=== PATIENT | female | born 1960 | race Caucasian/White ===

== ENCOUNTER 2021-04-09 10:37 | Emergency (ER) | payer MEDICARE, SELFPAY ==
[2021-04-09 10:52] VITALS: BP 149/78; PULSE 74; RESP 16; TEMP 37; O2SAT 98
--- NOTE | 2021-04-09 11:14 | ED.SKABFB ---
HPI - Skin/Abscess/Foreign Bdy General Chief complaint: Skin/Abscess/Foreign Body Stated complaint: Rash Time Seen by Provider: 04/09/21 11:14 Source: patient, RN notes reviewed and old records reviewed Mode of arrival: ambulatory Limitations: no limitations History of Present Illness HPI narrative: 61-year-old female who presents to [facility] with complaints of rash to upper arms, legs, and abdomen since last p.m. does admit to changing body wash Thursday. Patient reports itching extremely bad behind her knees and on elbows with also itching to other areas. Patient denies any increased difficulty with her breathing or swallowing. She denies any new medications, foods, laundry products or lotions or any new pets or outside work. Patient denies anyone else in household having rash, no sore throat or any fevers noted. Patient has had COVID vaccinations. complaint: rash Onset (ago): day(s) (1) Related Data Home Medications Medication Instructions Recorded Confirmed aspirin [Adult Low Dose Aspirin] 81 mg PO DAILY 04/09/21 04/09/21 levothyroxine 100 mcg PO DAILY 04/09/21 04/09/21 Allergies Allergy/AdvReac Type Severity Reaction Status Date / Time No Known Allergies Allergy Verified 04/09/21 10:58 Review of Systems Review of Systems: CONSTITUTIONAL: Denies fever, chills, or sweats. EYES: Denies visual changes, redness, or discharge. ENT: Denies rhinorrhea, congestion, sore throat, or otalgia. CARDIOVASCULAR: Denies chest pain, palpitations, or edema. RESPIRATORY: Denies cough or dyspnea. GASTROINTESTINAL: Denies abdominal pain, nausea, vomiting, or diarrhea. GENITOURINARY: Denies dysuria or hematuria. SKIN: Positive rash with itching upper arms and legs and abdomen MUSCULOSKELETAL: Denies back pain, joint pain, or myalgia. NEUROLOGIC: Denies headache, numbness, or weakness. PSYCHIATRIC: Denies anxiety or depression. All systems reviewed & are unremarkable except as noted in HPI and below PMFSH Past Medical History Medical History (Updated 04/14/21 @ 09:57 by Lolly Quintana NP) Colon cancer COPD (chronic obstructive pulmonary disease) History of thyroid irradiation Thyroid disease Surgical History Surgical History (Updated 04/09/21 @ 11:18 by Lolly Quintana NP) History of colon resection History of colostomy reversal Family History Family History (Updated 04/09/21 @ 11:22 by Lolly Quintana NP) Grandparent Diabetes mellitus Hypertension Mother Acute myocardial infarction Social History Social History (Updated 04/14/21 @ 09:58 by Lolly Quintana NP) Smoking packs per day: 0.5 Smoking cigarettes per day: 10.0 Years smoked: 50 Smoking pack-years: 25.00 Smoking status: Current every day smoker Tobacco type: cigarettes Alcohol intake: current Alcohol use details: social Substance use: never Living arrangements: with family Gender identity (if verbalized by the patient): Female Comments At time of signature, agree with nursing past medical, surgical, social and family history. There is no relevant family history pertinent to the presenting complaint Exam Narrative: GENERAL: Well-appearing, well-nourished, and in no acute distress. HEAD: Normocephalic, atraumatic. EYES: PERRLA and EOMI. ENT: Nares clear, no rhinorrhea or epistaxis. Mucous membranes moist.TM's normal, throat pink with no lesions or exudates, no tonsil enlargement NECK: Supple.no lymphadenopathy CHEST: Clear to auscultation. No respiratory distress.SAO2 98% on room air HEART: Regular rate and rhythm. No murmur heard. Normal peripheral pulses. ABDOMEN: Soft, nontender, nondistended, normal active bowel sounds. EXTREMITIES: Normal range of motion. No edema. SKIN: Warm, dry, red raised patchy rash to abdomen arms and legs which is itchy no exudate or vesicle formation. NEURO: No focal deficits. Alert and oriented x3. Course Vital Signs Vital signs: Vital Signs Temperature 37.0 C 04/09/21
== END 2021-04-09 11:32 | disposition home or self-care (01) ==
PROVIDERS: Emergency Provider Registered Nurse
DX: L25.9 Unspecified contact dermatitis, unspecified cause (principal); F17.210 Nicotine dependence, cigarettes, uncomplicated; E07.9 Disorder of thyroid, unspecified
CPT/HCPCS: 99213; G0463

== ENCOUNTER 2024-03-15 08:15 | Emergency (ER) | payer MEDICARE, SELFPAY ==
--- NOTE | ~2024-03-15 | XR_ITS ---
EXAMINATION: XR chest 2V DATE: 03/15/2024 08:39 INDICATION: Chest pain. Shortness of breath. TECHNIQUE: Frontal and lateral views of the chest were obtained. COMPARISON: None. FINDINGS: There is a mass in the posterior costophrenic angle on the lateral view. No pleural effusio n or pneumothorax. The heart size is normal. There is a right internal jugular port with tip in super ior vena cava. IMPRESSION: 1. Mass in the posterior costophrenic angle on the lateral view, which may be atelectasis, pneumonia, or malignancy. Consider chest CT. Reviewed, dictated and finalized at location A. IMPRESSION: 1. Mass in the posterior costophrenic angle on the lateral view, which may be a telectasis, pneumonia, or malignancy. Consider chest CT.
[2024-03-15 08:21] VITALS: BP 123/80; PULSE 107; RESP 20; TEMP 36.4; O2SAT 89
--- NOTE | 2024-03-15 08:28 | ED.GENADULT ---
HPI - General Adult General Chief complaint: Back Pain/Injury Stated complaint: Back Pain Time Seen by Provider: 03/15/24 08:34 Source: patient, RN notes reviewed and old records reviewed Mode of arrival: ambulatory Limitations: no limitations History of Present Illness HPI narrative: 64 year old female who [facility] with complaints of 1.5 weeks of right sided lateral chest wall pain from right lateral thoracic angle across lateral chest with no known injury. Patient reports history of COPD and is on home oxygen at 2 L, not wearing any oxygen on arrival with SAO2 89%, had cannula in place but had not turned on oxygen did turn it on after initial triage. Patient denies any fevers, increase cough or feelings of congestion. Patient reports that she is scheduled for CT scan of chest tomorrow at [facility] at 0745 and then has appointment with pulmonary doctor at 0830. MD complaint: pain to the right lateral chest Onset (ago): week(s) (1.5) Location: chest (right chest wall) Radiation: other (from right lateral thoracic across lateral chest lower rib line) Severity scale (1-10): 4 Quality: aching Treatments prior to arrival: other (Tylenol) Related Data Home Medications Medication Instructions Recorded Confirmed aspirin 81 mg tablet 81 mg PO DAILY 04/09/21 04/09/21 levothyroxine 100 mcg capsule 100 mcg PO DAILY 04/09/21 04/09/21 atorvastatin 10 mg tablet mg 03/15/24 Allergies Allergy/AdvReac Type Severity Reaction Status Date / Time No Known Allergies Allergy Verified 04/09/21 10:58 Review of Systems Review of Systems: CONSTITUTIONAL: Denies fever, chills, or sweats. EYES: Denies visual changes, redness, or discharge. ENT: Denies rhinorrhea, congestion, sore throat, or otalgia. CARDIOVASCULAR: Denies chest pain, palpitations, or edema. RESPIRATORY: Reports cough denies any acute dyspnea, does have history of COPD does use home oxygen per nasal cannula at 2 L. GASTROINTESTINAL: Denies abdominal pain, nausea, vomiting, or diarrhea. GENITOURINARY: Denies dysuria or hematuria. SKIN: Denies rash or itching. MUSCULOSKELETAL: Denies back pain, joint pain, or myalgia.positive for pain lateral chest from lateral thoracic angle to lateral chest along lower rib area. NEUROLOGIC: Denies headache, numbness, or weakness. PSYCHIATRIC: Denies anxiety or depression. All systems reviewed & are unremarkable except as noted in HPI and below PMFSH Past Medical History Medical History Colon cancer COPD (chronic obstructive pulmonary disease) History of thyroid irradiation Thyroid disease Surgical History Surgical History History of colon resection History of colostomy reversal Family History Family History Grandparent Diabetes mellitus Hypertension Mother Acute myocardial infarction Social History Social History Smoking packs per day: 0.5 Smoking cigarettes per day: 10.0 Years smoked: 50 Smoking pack-years: 25.00 Smoking status: Current every day smoker Tobacco type: cigarettes Alcohol intake: current Alcohol use details: social Substance use: never Living arrangements: with family Gender identity (if verbalized by the patient): Female Comments At time of signature, agree with nursing past medical, surgical, social and family history. There is no relevant family history pertinent to the presenting complaint Exam Narrative: GENERAL:chronic ill-appearing, well-nourished, and in no acute distress. HEAD: Normocephalic, atraumatic. EYES: PERRLA and EOMI. ENT: Nares clear, no rhinorrhea or epistaxis. Mucous membranes moist.TM's normal with good light reflex, throat pink with no swelling noted NECK: Supple.no lymphadenopathy CHEST: Decreased breath sounds on ausc
[2024-03-15 08:29] VITALS: BP 123/80; PULSE 107; RESP 20; TEMP 36.4; O2SAT 89
== END 2024-03-15 09:16 | disposition home or self-care (01) ==
PROVIDERS: Emergency Provider Registered Nurse; PCP Family Medicine
DX: R07.89 Other chest pain (principal); F17.210 Nicotine dependence, cigarettes, uncomplicated; J44.9 Chronic obstructive pulmonary disease, unspecified; E07.9 Disorder of thyroid, unspecified; Z85.038 Personal history of other malignant neoplasm of large intestine
CPT/HCPCS: 71046; 99213; G0463

== ENCOUNTER 2024-08-31 10:40 | Emergency (ER) | payer MEDICARE, SELFPAY ==
--- NOTE | ~2024-08-31 | XR_ITS ---
CHEST RADIOGRAPH, PA AND LATERAL CLINICAL HISTORY: cough sob leg swelling,HX PORT,COPD,ASTHMA,SMOKER . COMPARISON: 03/15/2024 TECHNIQUE: PA and lateral views of the chest. FINDINGS Right internal jugular central venous catheter identified with its tip projecting over the cavoatrial junction. The remainder of the cardiomediastinal silhouette is otherwise unremarkable. The lungs are clear. IMPRESSION: No focal infiltrate or effusion. Reviewed, dictated and finalized at location A.
[2024-08-31 10:48] VITALS: BP 158/60; PULSE 94; RESP 24; TEMP 36.4; O2SAT 76
[2024-08-31 10:54] VITALS: RESP 24; O2SAT 85
--- NOTE | 2024-08-31 10:58 | ED_ITS ---
HPI - URI/Sore Throat General Chief Complaint: Upper Respiratory Infection Stated Complaint: cough/shortness of breath/swollen ankles Time Seen by Provider: 08/31/24 10:59 Source: patient Mode of arrival: ambulatory Limitations: no limitations History of Present Illness HPI Narrative: 64-year-old female with a history of COPD presented for complaint of increasing shortness of breath, productive cough, and ankle swelling. Symptoms worsening over the past 2-3 weeks. She says she has a change in her sputum production amount and color. Endorses sob with exertion. Pt wears 3L per NC, says she has been wearing it more often. Denies cp, palpitations, n/v/d/f/c. Related Data Home Medications ?Medication ?Instructions ?Recorded ?Confirmed ?Last Taken ?Type aspirin 81 mg tablet 81 mg PO DAILY 04/09/21 04/09/21 Unknown History levothyroxine 100 mcg capsule 100 mcg PO DAILY 04/09/21 04/09/21 Unknown History atorvastatin 10 mg tablet mg 03/15/24 Unknown History Allergies Allergy/AdvReac Type Severity Reaction Status Date / Time No Known Allergies Allergy Verified 08/31/24 10:57 Review of Systems Review of Systems: CONSTITUTIONAL: Denies body aches, fever, chills, or sweats. EYES: Denies visual changes, redness, or discharge. ENT: Denies rhinorrhea, congestion, sore throat, or otalgia. CARDIOVASCULAR: Denies chest pain, palpitations, or edema. RESPIRATORY: Reports cough, sob, wheezing. GASTROINTESTINAL: Denies abdominal pain, nausea, vomiting, or diarrhea. MUSCULOSKELETAL: Denies back pain, joint pain, or myalgia. NEUROLOGIC: Denies headache, numbness, tingling, or weakness. All systems reviewed & are unremarkable except as noted in HPI and below PMFSH Past Medical History Medical History Colon cancer COPD (chronic obstructive pulmonary disease) History of thyroid irradiation Thyroid disease Surgical History Surgical History History of colon resection History of colostomy reversal Family History Family History Grandparent Diabetes mellitus Hypertension Mother Acute myocardial infarction Social History Social History Smoking packs per day: 0.5 Smoking cigarettes per day: 10.0 Years smoked: 50 Smoking pack-years: 25.00 Smoking status: Current every day smoker Tobacco type: cigarettes Alcohol intake: current Alcohol use details: social Substance use: never Living arrangements: with family Gender identity (if verbalized by the patient): Female Comments At time of signature, I have reviewed and agree with nursing past medical, surgical, social and family history unless otherwise noted. Please see nursing chart for further information. There is no relevant family history pertinent to the presenting complaint Exam Narrative: GENERAL: chronically ill-appearing, in no acute distress. EYES: EOMI. No redness or drainage. Conjunctivae normal. ENT: Mucous membranes pink and moist. No rhinorrhea. CHEST: No respiratory distress. O2 3L per NC home concentrator. Diminished with Wheezing to all morales. Moist harsh cough. HEART: Regular rate and rhythm. No murmur appreciated. ABDOMEN: Soft, nontender, nondistended, normal active bowel sounds. EXTREMITIES: Normal range of motion. 2+ BLE edema. DP pulses palpable. SKIN: Warm, dry, no rash. Capillary refill normal. Normal skin turgor. NEURO: Alert and oriented x3. Gait steady. Course Course Emergency Course: Patient is aware of diagnosis, understands and agrees to treatment plan. Anticipatory guidance given. Patient agrees to follow-up as directed and is aware of reasons to seek care at the emergency department. Portions of this record may have been created with voice recognition software Level of Care: Express Care Visit Vital Signs Vital signs: Vital Signs Temperature 97.6 F 08/31/24 10:48 Pulse Rate 94 08/31/24 10:48 Respiratory Rate 24 H 08/31/24 10:48 Blood Pressure 158/60 H 08/31/24 10:48 Pulse Oximetry 76 L 08/31/24 10:48 Oxygen Delivery Room Air 08/31/24 10:48 Temperature 97.6 F 08/31/24 10:48 Pulse Rate 94 08/31/24 10:48 Respiratory Rate 24 H 08/31/24 10:54 Blood Pressure 158/60 H 08/31/24 10:48 Pulse Oximetry 85 L 08/31/24 10:54 Oxygen Delivery Nasal Cannula 08/31/24 10:54 Oxygen Flow Rate 3 08/31/24 10:54 MDM - URI/Sore Throat MDM Narrative Medical decision making narrative: Discussed physical exam findings and CXR. Advised ER transfer for further evaluation of pt's BLE edema, sob and cough. O2 sat 76% RA, up to 85% with 3L which pt removes frequently to avoid getting dependent. The patient is AA&Ox3, free from distracting injury. 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 Given the patients presentation, we communicated our concern for sob, cough, hypoxia, edema in laymans terms. The patient verbalized an understanding. The patient is aware the evaluation is incomplete & many troublesome conditions have not been r/o. We have discussed the need for further ED evaluation. We have discussed the range of possible dx, potential testing & treatment options. Weve made efforts to prevent the pt from leaving AMA. Our discussions included the potential outcomes of leaving AMA, including worsening of their condition, becoming permanently disabled/in pain/critically ill, or . Despite these efforts, we were unable to convince the pt to go to the ER. We have attempted to offer tx/rx/guidance for any dangerous conditions which are most likely and/or dangerous. We have answered all questions and have implored the patient to go to ER [facility] to complete the w/u. A staff member witnessed the patient consenting to AMA. Differential Diagnosis Differential diagnosis: Likely upper respiratory infection, viral infection, bronchitis and other (Angioedema, perforation, asthma, pneumonia, PE, tension pneumothorax, cardiac tamponade GA, pericarditis, pleural effusion, CHF, bronchitis, cardiac arrhythmia) Imaging Data Radiologist's impression: Patient: Rosanna Nava : 1960 MR#: [id number] Age: 64 Acct:[id number] Loc: [facility] ADM Date: 08/31/24Attending Dr: Ordering Physician: Annette Yung APRN Date of Service: 08/31/24 Procedure(s): XR chest 2V Accession Number(s): [id number] cc: Annette Yung APRN; LiliyaMartha MD~ CHEST RADIOGRAPH, PA AND LATERAL CLINICAL HISTORY: cough sob leg swelling,HX PORT,COPD,ASTHMA,SMOKER . COMPARISON: 03/15/2024 TECHNIQUE: PA and lateral views of the chest. FINDINGS Right internal jugular central venous catheter identified with its tip projecting over the cavoatrial junction. The remainder of the cardiomediastinal silhouette is otherwise unremarkable. The lungs are clear. IMPRESSION: No focal infiltrate or effusion. Discharge Plan Discharge Clinical Impression: Leg edema, Increasing shortness of breath Patient Disposition: Left Against Medical Advice Condition: Stable Patient Language: [place] Prescriptions: No Action atorvastatin 10 mg tablet Adult Low Dose Aspirin 81 mg Tablet 81 mg PO DAILY levothyroxine 100 mcg Capsule 100 mcg PO DAILY Follow-up/Referrals: LiliyaMartha MD [Primary Care Provider] - Time of Disposition: 12:01
--- OUTSIDE RECORDS SUMMARY | 2024-08-31 12:13 | XMS_ITS | Referral Summary ---
Author Organization [facility] Address [address] [place] [id number] Care Team Providers Care Sanitarian Name Role Phone Martha Lovell MD Primary Care Provider [phone] Tariq Canales MD Unavailable [phone] Macho Diaz MD Unavailable [phone] Encounters Date Type Department Care Team Description 07/15/2024 Results Follow-Up Family [facility] at [address] [phone] Martha Lovell MD 07/15/2024 9:16 AM AWNING CRAFTSPERSON - 07/15/2024 11:59 PM AWNING CRAFTSPERSON Hospital Encounter [facility] [address] [place] [id number] Martha Lovell MD Pulmonary nodules; Centrilobular emphysema (HCC); Tobacco dependence due to cigarettes; Abnormal chest CT Discharge Disposition: Discharge to home or self care 06/30/2024 Telephone Family Care at [address] [phone] Martha Lovell MD Abnormal Chest CT 06/06/2024 9:45 AM AWNING CRAFTSPERSON Office Visit [employer] at [address] [place] [id number] Francesca Marino NP Mixed hyperlipidemia (Primary Dx); Bilateral carotid artery stenosis; Peripheral arterial disease; Pulmonary hypertension (HCC); Atherosclerosis of [place] arteries of extremities with intermittent claudication, bilateral legs; Carotid bruit, unspecified laterality from Last 3 Months Allergies No known active allergies Medications aspirin (Ecotrin Low Strength) 81 mg enteric coated tabletIndication s:Thoracic aorta atherosclerosis, Peripheral arterial disease Take 1 tablet (81 mg total) by mouth daily 0 3 Active albuterol HFA (PROVENTIL HFA,VENTOLIN HFA,PROAIR HFA) 90 mcg/actuation inhalerIndicatio ns:Chronic Obstructive Pulmonary Disease Inhale 2 puffs every 6 (six) hours as needed for shortness of breath or wheezing 3 Active furosemide (LASIX) 40 mg tablet Take 1 tablet (40 mg total) by mouth daily 30 tablet 1 4 11/17/19 25 Active Additional Information Patient taking differently:40 mg oralAs needed, Reported on 06/06/2024 zolpidem (AMBIEN) 10 mg tabletIndication s:Sleep-Onset Insomnia Take 1 tablet (10 mg total) by mouth nightly as needed for sleep 30 tablet 4 Active atorvastatin (LIPITOR) 10 mg tabletIndication s:hyperlipidemia Take 1 tablet (10 mg total) by mouth daily 90 tablet 3 4 Active levothyroxine (SYNTHROID) 112 mcg tabletIndication s:hypothyroidism Take 1 tablet (112 mcg total) by mouth daily 100 tablet 2 4 Active Trelegy Ellipta 100-62.5-25 mcg inhaler INHALE 1 PUFF ONCE DAILY 4 Active Active Problems Problem Noted Date Diagnosed Date Osteoporosis 04/22/2024 Medicare annual wellness visit, subsequent 03/22 Assessment & Plan (03/22/2024 12:34 PM CDT): Due for mammogram, bone density test Shingrix, Prevnar-20, Covid-19, influenza, RSV vaccines Advance directive discussed with patient 024 Assessment & Plan (03/22/2024 1:34 PM CDT): Handout given https://dp.[place].gov/content/dam/soi/en/web/idph/files/forms/powerofattorney healt hcareform.pdf Bilateral carotid artery stenosis 11/18/2023 Assessment & Plan (03/22/2024 7:45 AM CDT): 10/14/2023 - Carotid US - Plaque in the right internal carotid artery moderate calcified. The right internal carotid artery has 60-79% stenosis. Plaque in the left internal carotid artery is moderate calcified. The left internal carotid artery has 60-79% stenosis. Consider follow-up study after six months Policy Manager recommends annual monitoring Assessment & Plan (11/18/2023 5:15 PM CDT): 10/14/2023 - Carotid US - Plaque in the right internal carotid artery moderate calcified. The right internal carotid artery has 60-79% stenosis. Plaque in the left internal carotid artery is moderate calcified. The left internal carotid artery has 60-79% stenosis. Consider follow-up study after six months Pulmonary hypertension 11/18/2023 Assessment & Plan (03/22/2024 4:53 PM CDT): 10/14/2023 - ECHO - Normal LV systolic fxn w/ no focal wall motion abnls. Moderate concentric LVH. Reduced LV cavity size. Moderate RV enlargement. Severe pulmonary HTN. Mild TR Furosemide 40 mg daily Lower extremity edema started mid-July 2023 Furosemide started August 2023 20 mg daily, increased to 40 mg daily during October 2023 hospital stay Patient reported not taking furosemide today. 30 day supply last dispensed 12/18/2023 She is taking as needed. Lower extremity edema stable Assessment & Plan (11/19/2023 4:14 PM CDT): 10/14/2023 - ECHO - Normal LV systolic fxn w/ no focal wall motion abnls. Moderate concentric LVH. Reduced LV cavity size. Moderate RV enlargement. Severe pulmonary HTN. Mild TR Lower extremity edema started mid-July 2023 Furosemide started August 2023 20 mg daily, increased to 40 mg daily during recent hospital stay Today she says that the swelling has improved. It does improve overnight as well. A bit worse today because she has been on her feet all day. Continue furosemide 40 mg daily Elevate legs Recommend at least four 8-ounce glasses of water daily Smoking cessation Keep upcoming appt with Cardiology 12/01/2023 Handouts given https://www.thoracic.org/patients/patient-resources/resources/pulmonary-hyperten eneida. pdf https://www.thoracic.org/patients/patient-resources/resources/pulmonary-hyperten eneida- cwqpdagfh-lub-bnodelupx.pdf Pedal edema 08/13/2023 Elevated blood pressure reading 07/15/2023 Assessment & Plan (07/15/2023 12:30 PM AWNING CRAFTSPERSON): BP Readings from Last 4 Encounters: 07/15/23 154/84 03/23/23 113/68 06/16/22 136/82 04/01/22 123/77 168/82 on recheck today No history of elevation here in the office, but she does say that her BP was high when the [facility] nurse came to her home. Discussed starting antihypertensive medication, but she declined. Strongly encouraged smoking cessation. Will follow-up for BP recheck Personal history of colon cancer 03/10/2023 Immunization due 06/16/2022 Assessment & Plan (03/22/2024 1:40 PM CDT): Due for influenza, Shingrix, Covid-19, Prevnar-20, RSV Declined all vaccinations Discussed that Covid-19, RSV, and Shingrix are avail at local pharmacy She says today that she is considering the RSV vaccine Assessment & Plan (07/15/2023 12:32 PM AWNING CRAFTSPERSON): Due for influenza, Shingrix, Covid-19, Prevnar-20, RSV Declined all vaccinations Discussed that Covid-19, RSV, and Shingrix are avail at local pharmacy Assessment & Plan (06/16/2022 8:55 AM AWNING CRAFTSPERSON): Due for influenza, Shingrix, Covid-19 booster, Prevnar-20 Declined all vaccinations Mixed hyperlipidemia 06/16/2022 Assessment & Plan (03/22/2024 7:47 AM CDT): 10/2023 - total 96; Trig 57; HDL 40; LDL 45 TSH 2.42; HgbA1c 5.6 Atorvastatin 10 mg daily started May 2022 Cholesterol controlled on current prescription medication Assessment & Plan (11/18/2023 5:22 PM CDT): 10/2023 - total 96; Trig 57; HDL 40; LDL 45 TSH 2.42; HgbA1c 5.6 Atorvastatin 10 mg daily started May 2022 Cholesterol controlled on current prescription medication Assessment & Plan (07/15/2023 12:30 PM AWNING CRAFTSPERSON): 06/16/2022 - Total 206; Trig 81; HDL 54; LDL 136 TSH 1.64 Atorvastatin 10 mg daily started May 2022 Epic refill history indicates that she only filled one 3-month supply in the last 12 months. Assessment & Plan (06/16/2022 4:36 PM AWNING CRAFTSPERSON): Spoke with patient on the phone at 16:33 following her office visit regarding elevated cholesterol levels Discussed healthy diet and TOB cessation. Recommend statin I think she has been on atorvastatin in the past - prescribed by her PCP prior to establishing care here. She doesn't recall this. Will start atorvastatin 10 mg daily. Bilateral arm pain 04/01/2022 Pulmonary nodules 06/21/2021 Assessment & Plan (03/22/2024 7:43 AM CDT): 09/2021 - Chest CT - mild emphysema. Small pleural-based nodule RML stable. Small cavitary lesion RUL stable. Healed granulomatous disease bilaterally. Right- sided port-a-cath. CAD & aortic atherosclerosis 06/10/2023 - Chest CT - LungRads 4A, suspicious. Recommend 3 month follow-up. Several new nodules BLL which measure up to 7 mm. Moderate emphysema. Healed granulomatous disease. Right-sided port-a-cath. CAD & aortic atherosclerosis 03/16/2024 - Chest CT - Right-sided port-a-cath. CAD & Aortic Atherosclerosis. Moderate emphysema. Stable pleural-based nodule RML. New nodular density posterior RLL, short term follow-up recommended in 3 months. Healed granulomatous disease in both lungs Assessment & Plan (07/14/2023 7:44 PM AWNING CRAFTSPERSON): 09/2021 - Chest CT - mild emphysema. Small pleural-based nodule RML stable. Small cavitary lesion RUL stable. Healed granulomatous disease bilaterally. Right- sided port-a-cath. CAD & aortic atherosclerosis 06/10/2023 - Chest CT - LungRads 4A, suspicious. Recommend 3 month follow-up. Several new nodules BLL which measure up to 7 mm. Moderate emphysema. Healed granulomatous disease. Right-sided port-a-cath. CAD & aortic atherosclerosis Repeat chest CT scheduled 09/16/2023 Assessment & Plan (06/16/2022 6:13 AM AWNING CRAFTSPERSON): 09/2021 - Chest CT - mild emphysema. Small pleural-based nodule RML stable. Small cavitary lesion RUL stable. Healed granulomatous disease bilaterally. Right- sided port-a-cath. CAD & aortic atherosclerosis Follow-up Chest CT scheduled 10/27/2022 Elevated hematocrit 06/14/2021 Assessment & Plan (03/22/2024 7:48 AM CDT): 05/2020 - H/H 16.1/50.7 05/2021 - H/H 16.3/50.9 05/2022 - H/H 17.0/54.2 06/2023 - H/H 17.1/54.9 Likely assoc with TOB use Check erythropoietin level today Assessment & Plan (07/15/2023 12:24 PM AWNING CRAFTSPERSON): 05/2020 - H/H 16.1/50.7 05/2021 - H/H 16.3/50.9 05/2022 - H/H 17.0/54.2 Today - H/H 17.1/54.9 Likely assoc with TOB use Check erythropoietin level today Assessment & Plan (06/16/2022 2:37 PM AWNING CRAFTSPERSON): 05/2020 - H/H 16.1/50.7 06/14/2021 - H/H 16.3/50.9 06/16/2022 - H/H 17.0/54.2 Likely assoc with TOB use stable Assessment & Plan (06/14/2021 9:21 AM AWNING CRAFTSPERSON): 05/2020 - H/H 16.1/50.7 Likely assoc with TOB use Mammogram declined 06/14/2021 Assessment & Plan (03/22/2024 1:35 PM CDT): Encouraged mammogram. Handout given https://www.cancer.org/content/dam/cancer-org/online-documents/en/pdf/infographi cs/7- ovbopt-hh-wttj-qjutb-pkxouts-c-mammogram.pdf Assessment & Plan (07/15/2023 10:35 AM AWNING CRAFTSPERSON): Encouraged mammogram. Handout given https://www.cancer.org/content/dam/cancer-org/online-documents/en/pdf/infographi cs/7- nvrguo-aj-mepc-lohgq-dkunxnt-x-mammogram.pdf Assessment & Plan (06/16/2022 8:59 AM AWNING CRAFTSPERSON): Encouraged mammogram. handout given https://www.cdc.gov/cancer/breast/pdf/ndysyj-znyrnu-ryho-sheet-508.pdf Assessment & Plan (06/14/2021 9:20 AM AWNING CRAFTSPERSON): we discussed screening in depth and patient understands all risks and benefits associated with proposed therapies and currently declines, patient has been encouraged to call if they change their mind Primary insomnia 06/11/2020 Assessment & Plan (03/22/2024 7:50 AM CDT): Ambien 10 mg QHS PRN Doxepin 10 mg QHS - doesn't help with sleep Ambien 5 mg QHS PRN started Jun 2023, increased to 10 mg last office visit (October 2023) Assessment & Plan (11/19/2023 4:13 PM CDT): Doxepin 10 mg QHS - doesn't help with sleep Ambien 5 mg QHS PRN started last office visit (Jun 2023) Helps her go to sleep, but doesn't help her stay asleep Discussed sleep hygiene - recommend against Energy Drinks and smoking at night Will try Ambien 10 mg QHS Discussed risk of drowsiness the following day Assessment & Plan (07/15/2023 12:27 PM AWNING CRAFTSPERSON): Doxepin 10 mg QHS - doesn't help with sleep Reviewed sleep hygiene. Will try Ambien 5 mg QHS PRN Assessment & Plan (06/16/2022 8:58 AM AWNING CRAFTSPERSON): Doxepin 10 mg QHS prescribed May 2020 Patient only filled once (30 day supply) Reviewed sleep hygiene Limit screen time (including T.V., tablet, computer, AND smart phone) to less than 2 hours daily No screen time within 1 hour of bed time. Try to keep a consistent bed time and wake time every day. Make sure all sleep including naps is good, quality sleep in the bedroom with the lights out and the T.V. off. Try not to nap on the couch with the T.V. on No caffeine after lunch Smoking cessation Will try doxepin again. Encouraged her to let us know if prescription has a high [id number] cost Assessment & Plan (06/14/2021 8:42 AM AWNING CRAFTSPERSON): Doxepin 10 mg QHS prescribed May 2020 Patient only filled once (30 day supply) Assessment & Plan (06/11/2020 3:02 PM AWNING CRAFTSPERSON): Limit screen time (including T.V., tablet, computer, AND smart phone) to less than 2 hours daily No screen time within 1 hour of bed time Never sleep with the TV on. Start doxepin Dental disease 06/11/2020 Assessment & Plan (06/11/2020 12:51 PM AWNING CRAFTSPERSON): Form completed for [facility] incase patient changes her mind and decides to get the dental work [address] [place] [address] p [phone] f [phone] Right-sided chest wall pain 06/11/2020 Assessment & Plan (03/22/2024 4:58 PM CDT): 03/16/2024 - Chest CT - Right-sided port-a-cath. CAD & Aortic Atherosclerosis. Moderate emphysema. Stable pleural-based nodule RML. New nodular density posterior RLL, short term follow-up recommended in 3 months. Healed granulomatous disease in both lungs Painful cough x 2 weeks. Prescribed Tylenol #3 at Urgent Care 03/15/2024. Pain persists. Will Rx prednisone 40 mg daily x 5 days. Needs follow-up Chest CT May 2024 Patient to call if pain persists Assessment & Plan (11/19/2023 4:16 PM CDT): 07/23/2023 - treadmill stress test - Submaximal exercise ECG that is negative for ischemia. Poor exercise capacity. This is a NONDIAGNOSTIC stress test. Patient only achieved 73% of maximum heart rate. Consider repeat nuclear stress test with imaging, such as a Lexiscan nuclear stress test if clinically indicated 10/14/2023 - SPECT stress test - Myocardial Perfusion: Normal rest & stress images. Left ventricle: Normal size & systolic fxn (EF >50%) Upcoming office visit with Dr. Canales 12/01/2023 Has not had chest pain since leaving hospital Assessment & Plan (07/15/2023 12:29 PM AWNING CRAFTSPERSON): History of pulmonary hypertension diagnosed 05/2008 Thought to be idiopathic vs mitomycin vs diastolic HF induced. Has been treated with tadaladil in the past. Most recent ECHO 08/2010 - RV fxn normalized. Currently with episodes of chest pain once or twice every 2-3 weeks. Episodes last ~ 20 minutes or so. No pattern or trigger. Occur at rest. EKG unchanged compared to 2020. BP elevated today. High risk for CAD - risk factors include PAD, smoking, hyperlipidemia. No prior cardiac stress test Recommend continue aspirin 81 mg daily, statin Treadmill stress test Assessment & Plan (06/11/2020 3:06 PM AWNING CRAFTSPERSON): History of pulmonary hypertension diagnosed 05/2008 Thought to be idiopathic vs mitomycin vs diastolic HF induced. Has been treated with tadaladil in the past. Most recent ECHO 08/2010 - RV fxn normalized. EKG normal today Atypical, infrequent symptoms. Discussed red flag signs and symptoms. Encouraged her to call back if symptoms worsen or change in any way Thoracic aorta atherosclerosis 06/08/2019 Assessment & Plan (03/22/2024 7:47 AM CDT): Incidental finding on CT Chest 05/2018 Continue ASA stable Assessment & Plan (07/14/2023 7:45 PM AWNING CRAFTSPERSON): Incidental finding on CT Chest 05/2018 Continue ASA stable Assessment & Plan (06/16/2022 6:09 AM AWNING CRAFTSPERSON): Incidental finding on CT Chest 05/2018 Continue ASA Assessment & Plan (06/13/2021 8:22 AM AWNING CRAFTSPERSON): Incidental finding on CT Chest 05/2018 Continue ASA Assessment & Plan (06/11/2020 10:44 AM AWNING CRAFTSPERSON): Incidental finding on CT Chest 05/2018 Continue ASA Assessment & Plan (06/08/2019 10:26 AM AWNING CRAFTSPERSON): Incidental finding on CT Chest 05/2018 Continue ASA Peripheral arterial disease 06/08/2019 Assessment & Plan (03/22/2024 4:53 PM CDT): 10/14/2023 - ABIs - Mild arterial insufficiency w/ dressings RLE, ankle-brachial index 0.78. Biphasic waveform at the ankle. No arterial or citrus LLL, ankle-brachial index 0.96. Biphasic to triphasic waveform at the ankle Aspirin 81 mg daily Atorvastatin 10 mg daily stable Assessment & Plan (11/18/2023 5:14 PM CDT): 10/14/2023 - ABIs - Mild arterial insufficiency w/ dressings RLE, ankle-brachial index 0.78. Biphasic waveform at the ankle. No arterial or citrus LLL, ankle-brachial index 0.96. Biphasic to triphasic waveform at the ankle Aspirin 81 mg daily Atorvastatin 10 mg daily Assessment & Plan (07/14/2023 7:45 PM AWNING CRAFTSPERSON): History of stent placement Currently asymptomatic. Continue aspirin 81 mg daily Encourage smoking cessation Assessment & Plan (06/16/2022 2:36 PM AWNING CRAFTSPERSON): History of stent placement Currently asymptomatic. 06/16/2022 - Cr 0.68, eGFR 98 Total 206; Trig 81; HDL 54; LDL 136 Assessment & Plan (06/13/2021 8:23 AM AWNING CRAFTSPERSON): History of stent placement Currently asymptomatic. Assessment & Plan (06/11/2020 10:45 AM AWNING CRAFTSPERSON): History of stent placement Currently asymptomatic. Assessment & Plan (06/08/2019 10:29 AM AWNING CRAFTSPERSON): History of stent placement Currently asymptomatic. Tobacco dependence due to cigarettes 06/08/2019 Assessment & Plan (03/22/2024 1:26 PM CDT): Doesn't want Chantix because she has read the side effect profile Doesn't like the Nicorette Gum. Had Nicoderm patches in the hospital and it did help Nicoderm 21 mg/day. Prescribed October 2023 28 day supply dispensed 12/20/2023. Patient reported not taking today. She says that they didn't help Assessment & Plan (11/19/2023 4:11 PM CDT): Doesn't want Chantix because she has read the side effect profile Doesn't like the Nicorette Gum. Had Nicoderm patches in the hospital and it did help Will try Nicoderm 21 mg/day. Discussed that insurance may not cover Provided information for 1-057-IAXX-NOW for resources Encouraged cessation Assessment & Plan (07/14/2023 7:47 PM AWNING CRAFTSPERSON): Encouraged cessation Assessment & Plan (06/16/2022 6:14 AM AWNING CRAFTSPERSON): Encouraged cessation Assessment & Plan (01/21/2022 1:22 PM CDT): Encouraged cessation Assessment & Plan (06/14/2021 9:20 AM AWNING CRAFTSPERSON): 10/19/2019 - Chest CT - multiple pulmonary nodules stable since previous w/ interval resolution of the nodule pleural-based right base; COPD; stable granulomata; Atherosclerosis Encouraged smoking cessation Assessment & Plan (06/11/2020 3:06 PM AWNING CRAFTSPERSON): Encouraged cessation History of rectal cancer 06/08/2019 Assessment & Plan (03/22/2024 7:48 AM CDT): 01/2018 - colonoscopy - digital rectal exam w/ hard fibrotic anal canal from previous radiation. No anal or violetta anal lesions. colon (entire examined portion) normal. No polyps. At the colo-anal anstomosis localized area of erythema, biopsy for histology performed Pathology - No pathologic diagnosis 02/2023 - colonoscopy - Perianal & digital rectal examinations normal. Anus somewhat deformed. No perianal skin lesions or anal canal lesions. Cecum appeared normal. Colon (entire examined portion) appeared normal. No polyps & no mass lesions. Rectum appeared normal. It was difficult to retro flex in the rectum from previous radiation & the fixation of the rectal wall but no mass lesions Dr. Ellen Cody [facility] Assessment & Plan (07/14/2023 7:41 PM AWNING CRAFTSPERSON): 01/2018 - colonoscopy - digital rectal exam w/ hard fibrotic anal canal from previous radiation. No anal or violetta anal lesions. colon (entire examined portion) normal. No polyps. At the colo-anal anstomosis localized area of erythema, biopsy for histology performed Pathology - No pathologic diagnosis 02/2023 - colonoscopy - Perianal & digital rectal examinations normal. Anus somewhat deformed. No perianal skin lesions or anal canal lesions. Cecum appeared normal. Colon (entire examined portion) appeared normal. No polyps & no mass lesions. Rectum appeared normal. It was difficult to retro flex in the rectum from previous radiation & the fixation of the rectal wall but no mass lesions Dr. Ellen Cody [facility] Assessment & Plan (06/16/2022 8:59 AM AWNING CRAFTSPERSON): 01/2018 - colonoscopy - digital rectal exam w/ hard fibrotic anal canal from previous radiation. No anal or violetta anal lesions. colon (entire examined portion) normal. No polyps. At the colo-anal anstomosis localized area of erythema, biopsy for histology performed Pathology - No pathologic diagnosis Dr. Ellen Cody - [facility] Recommended 5 year follow-up. Will be due this . Longstanding fecal incontinence as a result of the surgeries. Patient wears adult protective undergarments. Discussed repeat colonoscopy with patient today Will provide reminder and referral in Jan 2023 Assessment & Plan (06/13/2021 8:23 AM AWNING CRAFTSPERSON): Screening up to date Will need repeat c-scope in 2022 Longstanding fecal incontinence as a result of the surgeries. Patient wears adult protective undergarments. Assessment & Plan (06/11/2020 3:02 PM AWNING CRAFTSPERSON): Screening up to date Will need repeat c-scope in 2022 Longstanding fecal incontinence as a result of the surgeries. Patient wears adult protective undergarments. Assessment & Plan (06/08/2019 10:27 AM AWNING CRAFTSPERSON): Screening up to date Will need repeat c-scope in 2022 Longstanding fecal incontinence as a result of the surgeries. Patient wears adult protective undergarments. Screening for condition 06/08/2019 Assessment & Plan (03/22/2024 4:58 PM CDT): Patient screened for future fall risk; documentation of no falls in the past year or only 1 fall without injury in the past year Assessment & Plan (07/15/2023 12:27 PM AWNING CRAFTSPERSON): Patient screened for future fall risk; documentation of no falls in the past year or only 1 fall without injury in the past year Assessment & Plan (06/16/2022 8:43 AM AWNING CRAFTSPERSON): Patient screened for future fall risk; documentation of no falls in the past year or only 1 fall without injury in the past year Assessment & Plan (06/14/2021 8:42 AM AWNING CRAFTSPERSON): Patient screened for future fall risk; documentation of no falls in the past year or only 1 fall without injury in the past year Assessment & Plan (06/11/2020 3:02 PM AWNING CRAFTSPERSON): Patient screened for future fall risk; documentation of no falls in the past year or only 1 fall without injury in the past year Assessment & Plan (06/08/2019 10:27 AM AWNING CRAFTSPERSON): Patient screened for future fall risk; documentation of no falls in the past year or only 1 fall without injury in the past year BMI 27.0-27.9,adult 06/08/2019 Assessment & Plan (03/22/2024 1:20 PM CDT): Wt Readings from Last 3 Encounters: 03/22/24 63 kg (139 lb) 12/01/23 64 kg (141 lb) 11/19/23 67.1 kg (148 lb) 07/15/23 - 143 lbs 06/16/22 - 130 lbs 9 lbs weight loss since last office visit discussed healthy diet, exercise and adequate sleep Body mass index is 27.15 kg/m . Assessment & Plan (11/19/2023 3:40 PM CDT): Wt Readings from Last 3 Encounters: 11/19/23 67.1 kg (148 lb) 11/17/23 70.9 kg (156 lb 4.9 oz) 09/08/23 68.9 kg (152 lb) 07/15/23 - 143 lbs 06/16/22 - 130 lbs Body mass index is 28.9 kg/m . Assessment & Plan (07/15/2023 9:56 AM AWNING CRAFTSPERSON): Wt Readings from Last 5 Encounters: 07/15/23 64.9 kg (143 lb) 03/23/23 59 kg (130 lb) 06/16/22 59 kg (130 lb) 04/01/22 60.4 kg (133 lb 3.2 oz) 01/21/22 61.9 kg (136 lb 6.4 oz) 13 lbs weight gain since last office visit discussed healthy diet, exercise and adequate sleep Body mass index is 23.8 kg/m . Assessment & Plan (06/16/2022 8:43 AM AWNING CRAFTSPERSON): Wt Readings from Last 3 Encounters: 06/16/22 59 kg (130 lb) 04/01/22 60.4 kg (133 lb 3.2 oz) 01/21/22 61.9 kg (136 lb 6.4 oz) discussed healthy diet, exercise and adequate sleep Body mass index is 21.63 kg/m . Assessment & Plan (01/21/2022 1:13 PM CDT): discussed healthy diet, exercise and adequate sleep Body mass index is 22.7 kg/m . Assessment & Plan (06/14/2021 8:42 AM AWNING CRAFTSPERSON): discussed healthy diet, exercise and adequate sleep Body mass index is 23.53 kg/m . Assessment & Plan (06/11/2020 3:02 PM AWNING CRAFTSPERSON): discussed healthy diet, exercise and adequate sleep Body mass index is 24.79 kg/m . Assessment & Plan (06/08/2019 10:30 AM AWNING CRAFTSPERSON): discussed healthy diet, exercise and adequate sleep Body mass index is 24.3 kg/m . Chronic migraine without aur a without status migrainosus, not intractable 04/29/2017 Malignant neoplasm of rectum 05/14/2012 Postablative hypothyroidism 11/29/2010 Overview (06/11/2020): Hyperthyroidism Dx 08/2009 hospital stay due to atrial fibrillation Assessment & Plan (03/22/2024 7:47 AM CDT): 05/2020 - TSH 2.32 Levothyroxine 100 mcg daily 05/2021 - TSH 6.43 (H) Levothyroxine increased to 112 mcg daily 05/2022 - TSH 1.64 10/2023 - TSH 2.42 (N) Stable on current Assessment & Plan (11/18/2023 5:21 PM CDT): 05/2020 - TSH 2.32 Levothyroxine 100 mcg daily 05/2021 - TSH 6.43 (H) Levothyroxine increased to 112 mcg daily 05/2022 - TSH 1.64 10/2023 - TSH 2.42 (N) Stable on current Assessment & Plan (07/14/2023 7:46 PM AWNING CRAFTSPERSON): 05/2020 - TSH 2.32 Levothyroxine 100 mcg daily 06/14/2021 - TSH 6.43 (H) Levothyroxine increased to 112 mcg daily 06/16/2022 - TSH 1.64 Stable on current Assessment & Plan (06/16/2022 2:36 PM AWNING CRAFTSPERSON): 05/2020 - TSH 2.32 Levothyroxine 100 mcg daily 06/14/2021 - TSH 6.43 (H) Levothyroxine increased to 112 mcg daily 06/16/2022 - TSH 1.64 Stable on current Assessment & Plan (06/13/2021 8:22 AM AWNING CRAFTSPERSON): 05/2020 - TSH 2.32 Levothyroxine 100 mcg daily Assessment & Plan (06/11/2020 3:02 PM AWNING CRAFTSPERSON): Labs today Assessment & Plan (06/08/2019 10:27 AM AWNING CRAFTSPERSON): Release for records from [facility] in [place], [place] For lab results in 2019 Emphysema lung 07/21/2010 Overview (06/10/2020): Pulmonary - Dr. Diaz Assessment & Plan (03/22/2024 7:49 AM CDT): 11/15/2023 - Chest CT PE protocol - No evidence of pulmonary embolism to the subsegmental level. Diffuse centrilobular emphysema Trelegy Ellipta 100-62.5-25 mcg Albuterol as needed Managed by Pulmonary Recent office visit earlier this month - Stiloto changed to Trelegy Assessment & Plan (11/18/2023 5:19 PM CDT): 11/15/2023 - Chest CT PE protocol - No evidence of pulmonary embolism to the subsegmental level. Diffuse centrilobular emphysema Stiolto inhaler Albuterol as needed Managed by Pulmonary Repeat Chest CT scheduled 03/16/2024 Assessment & Plan (07/14/2023 7:46 PM AWNING CRAFTSPERSON): Stiolto inhaler Albuterol as needed Managed by Pulmonary Assessment & Plan (06/16/2022 6:12 AM AWNING CRAFTSPERSON): Stiolto inhaler Managed by Pulmonary Assessment & Plan (06/13/2021 8:22 AM AWNING CRAFTSPERSON): Stiolto inhaler Managed by Pulmonary Assessment & Plan (06/11/2020 10:45 AM AWNING CRAFTSPERSON): Maintains follow-up with Pulmonary Encouraged smoking cessation Assessment & Plan (06/08/2019 10:24 AM AWNING CRAFTSPERSON): Stable without inhalers Maintains follow-up with Pulmonary Encouraged smoking cessation Resolved Problems Problem Noted Date Diagnosed Date Resolved Date Hospital discharge follow-up 11/18/2023 03/22/2024 Assessment & Plan (11/18/2023 5:20 PM CDT): Date Admitted: 11/15/2023 Date Discharged: 11/17/2023 Facility Name: [facility] I have personally reviewed all notes from inpatient stay including consult notes, imaging and labs. I have also reconciled the medications with the patient. I, Martha Lovell MD have personally reviewed pertinent Hospital/ER data including [employer] and Care Everywhere if available. This patient's discharge medication list has been reviewed and reconciled with her medication list in the office chart and has also been reviewed with patient and/or caregiver. I have noted any changes. Acute chest pain 11/15/2023 11/18/2023 Pap smear of cervix declined 06/16/2022 06/16/2022 Assessment & Plan (06/16/2022 8:40 AM AWNING CRAFTSPERSON): https://www.cdc.gov/cancer/cervical/pdf/cervical_facts.pdf Right flank pain 01/21/2022 06/16/2022 Assessment & Plan (01/21/2022 1:26 PM CDT): 11/2014 - lumbar x-ray - Facet arthropathy L4-5 & L5-S1. No fracture or subluxation. Intervertebral disc spaces & bony alignment normal POCT UA today completely negative Exam consistent with low back pain. Likely triggered by house and yard work last Thursday No red flags Recommend conservative treatment initially Recommend ice OR heat to affected area - low back. 20 minutes at a time, 2-3 times a day. OTC Tylenol Muscle relaxer; discussed potential side effect of drowsiness Consider PT if pain persists Hearing loss due to cerumen impaction, right 01/21/2022 Assessment & Plan (11/22/2021 10:11 AM CDT): -Ear wax removed with cerumen loop and warm water lavage, patient tolerated well. TMs were visualized postprocedure and were within normal limits. -Recommend OTC Debrox drops as needed for increased ear wax, should symptoms persist after home treatment then patient should make appointment for further evaluation. Abnormal chest CT 06/21/2021 01/21/2022 Grieving 06/14/2021 01/21/2022 Assessment & Plan (06/14/2021 9:21 AM AWNING CRAFTSPERSON): Offered condolences and sympathy Encouraged patient to call if symptoms are severe or prolonged Excessive cerumen in ear canal, left 06/14/2021 01/21/2022 Assessment & Plan (06/14/2021 9:22 AM AWNING CRAFTSPERSON): Not currently causing discomfort or affecting hearing. Discussed OTC drops, irrigation in the shower Discouraged ear wax candles Annual physical exam 06/08/2019 023 Assessment & Plan (06/16/2022 6:12 AM AWNING CRAFTSPERSON): 06/14/2021 - labs Cr 0.68, eGFR 98 Total 169; Trig 90; HDL 35; LDL 116 Assessment & Plan (06/11/2020 3:02 PM AWNING CRAFTSPERSON): recommend at least 10 minutes of moderate intensity exercise most days of the week with a goal of 150 minutes weekly. Assessment & Plan (06/08/2019 10:26 AM AWNING CRAFTSPERSON): Patient independant in all ADLs and IADLs. no significant decline in overall physical or mental health over last 12 months. no ER visits or hospital stays. recommend at least 10 minutes of moderate intensity exercise most days of the week with a goal of 150 minutes weekly. 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 06/08/2019 Immunizations Immunization Administration Dates Next Due Influenza, Unspecified 12/24/2023(Deferr ed: Patient Refused),12/23/2020(Deferred: Patient decision),12/24/2019(Deferred: Patient decision) Social History Tobacco Use Types Packs/Day Years Used Date Smoking Tobacco: Every Day Cigarettes 0.8 52.6 Started: 01/17/1972 Smokeless Tobacco: Current Tobacco Cessation:Ready to Q uit: Not Asked; Counseling Given: Not Answered Alcohol Use Standard Drinks/Week Comments Yes 0 (1 standard drink = 0.6 oz pur e alcohol) [facility] Utilities Answer Date Recorded In the past 12 months has [employer], gas, oil, or water [employer] threatened to shut off services in your home? No 11/16/2023 Social Connection and Isolat ion Panel [NHANES] Answer Date Recorded In a typical week, how many times do you talk on the phone with family, friends, or neighbors? More than three times a week 11/16/2023 How often do you get togethe r with friends or relatives? Three times a week 11/16/2023 How often do you attend chur ch or advent services? Never 11/16/2023 Do you belong to any clubs o r organizations such as moravian groups, unions, fraternal or athletic groups, or school groups? Yes 11/16/2023 How often do you attend meet ings of the clubs or organizations you belong to? More than 4 times per year 11/16/2023 Are you , , di vorced, , never , or living with a partner? 11/16/2023 AUDIT-C Answer Date Recorded Q1: How often do you have a drink containing alc ohol? Monthly or less 03/22/2024 Q2: How many drinks containi ng alcohol do you have on a typical day when you are drinking? 1 or 2 03/22/2024 Q3: How often do you have si x or more drinks on one occasion? Less than monthly 03/22/2024 Overall Financial Resource Strain (CARDIA) Answe r Date Recorded How hard is it for you to pa y for the very basics like food, housing, medical care, and heating? Not very hard 11/16/2023 PHQ-2 Answer Date Recorded PHQ-2 Total Score (If total score is 3 or more points, staff should administer the PHQ-9) 0 03/22/2024 Hunger Vital Sign Answer Date Recorded Within the past 12 months, y ou worried that your food would run out before you got the money to buy more. Never true 11/16/19 Within the past 12 months, t he food you bought just didn't last and you didn't have money to get more. Never true 11/16/2023 PRAPARE - Transportation Answer Date Re corded In the past 12 months, has l ack of transportation kept you from medical appointments or from getting medications? No 10/24 In the past 12 months, has l ack of transportation kept you from meetings, work, or from getting things needed for daily living? No 11/16/2023 Housing Stability Vital Sign Answer Donnie e Recorded In the last 12 months, was t here a time when you were not able to pay the mortgage or rent on time? No 11/16/2023 In the past 12 months, how m any times have you moved where you were living? 1 11/16/2023 At any time in the past 12 m [facility], were you homeless or living in a alf (including now)? No 11/16/2023 Personal Safety Answer Date Recorded Have you ever been in or are you currently in a harmful physical or emotional relationship or is someone making you feel afraid or unsafe? Denies 11/15/2023 Education Answer Date Recorded What is the highest level of school you have completed or the highest degree you have received? 11th grade 11/16/2023 Comments No Sex and Gender Information Value Date Recorded Sex Assigned at Not on file Legal Sex Female 12:57 AM AWNING CRAFTSPERSON Gender Identity Not on file Sexual Orientation Not on file Last Filed Vital Signs Vital Sign Reading Time Taken Comments Blood Pressure 122/71 06/06/2024 9:59 AM AWNING CRAFTSPERSON Pulse 77 06/06/2024 9:59 AM AWNING CRAFTSPERSON Temperature 36.2 C (97.2 F) 11/17/2023 11:43 AM CDT Respiratory Rate 18 06/06/2024 9:59 AM AWNING CRAFTSPERSON Oxygen Saturation 91% 11/17/2023 11:43 AM CDT Inhaled Oxygen Concentration - - Weight 61.2 kg (135 lb) 06/06/2024 9:59 AM AWNING CRAFTSPERSON Height 152.4 cm (5') 06/06/2024 9:59 AM AWNING CRAFTSPERSON Body Mass Index 26.37 06/06/2024 9:59 AM AWNING CRAFTSPERSON Plan of Treatment Not on file Procedures Procedure Name Priority Date/Time Associated Diagnosis Comments CT CHEST WO CONTRAST Schedule Routine, Read Routine (OP Routine) 07/15/2024 9:32 AM AWNING CRAFTSPERSON Pulmonary nodules Centrilobular emphysema (HCC) Tobacco dependence due to cigarettes Abnormal chest CT DEXA AXIAL SKELETON BONE DENSITY 1 OR MORE SITES Schedule Routine, Read Routine (OP Routine) 04/22/2024 11:39 AM AWNING CRAFTSPERSON Medicare annual wellness visit, subsequent Asymptomatic postmenopausal state COLONOSCOPY 03/23/2023 10:[address] LUNG CANCER SCREENING Schedule Routine, Read Routine (OP Routine) 10/27/2022 6:57 AM CDT Nicotine dependence, cigarettes, uncomplicated HEPATITIS C ANTIBODY Routine 06/11/2020 11:49 AM AWNING CRAFTSPERSON Annual physical exam Screening for viral disease from Last 3 Months or Most Recently Relevant to Health Maintenance Results * CT Chest WO Contrast (07/15/2024 9:32 AM AWNING CRAFTSPERSON) Anatomical Region Laterality Modality Body N/A Computed Tomogra phy 07/15/2024 4:14 PM AWNING CRAFTSPERSON Impressions 07/15/2024 4:14 PM AWNING CRAFTSPERSON 1. Severe emphysema. 2. Pulmonary hypertension. 3. If the patient qualifies I would recommend enrollment in lung cancer screening program. Electronically signed by: Yrn Hernandez M.D., MPH Narrative 07/15/2024 4:14 PM AWNING CRAFTSPERSON EXAMINATION: CT CHEST WO CONTRAST TECHNIQUE: Computed tomographic examination chest was performed with intravenous contrast using standard protocol. HISTORY: Multiple lung nodules COMPARISON:03/13/2024 FINDINGS: The tree-in-bud nodules noted in the right lower lobe with almost completely resolved. There are no new pulmonary nodules or masses that would suggest primary or metastatic disease. Severe upper lobe prominent centrilobular emphysema noted. There is enlargement of the main pulmonary artery and right heart suggesting underlying pulmonary hypertension. There is no focal pneumonic consolidation or pneumothorax. There is no supraclavicular mediastinal or hilar lymphadenopathy. Three-vessel coronary artery calcification noted. Visualized upper abdomen normal. 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 IMPRESSION: Osteoporosis. REFERENCE: Bone mineral density: T-Score: Normal (T-score above or = -1.0) Low bone mass (T-score between -1.0 and -2.5) replaces the previously used term osteopenia Osteoporosis (T-score = or below -2.5) Z-Score: Within the expected range for age (Z-score above -2.0) Below the expected range for age (Z-score is -2.0 or below) Please see below follow up recommendations. Medical evaluation for secondary causes of low bone mineral density may be appropriate. FRAX is a World Health Organization validated fracture risk assessment tool that calculates a person's 10 year probability of a major osteoporosis related fracture and hip fracture. According to the National Osteoporosis Foundation guidelines, postmenopausal women and men age 50 or older with low bone mass and a 10 year probability of a major osteoporosis related fracture = or greater than 20% or a 10 year probability of a hip fracture = or greater than 3% should be considered for pharmacological treatment for the prevention of osteoporosis. For further information, including treatment recommendations, please refer to the 2019 ISCD Official Positions (http://www.iscd.org) and the NOF's Clinician's Guide to Prevention and Treatment of Osteoporosis (http://www.nof.org/professionals/clinical-guidelines) THIS IS AN ELECTRONICALLY VERIFIED FINAL REPORT 04/24/2024 10:51 AM - Electronically signed by Reddy Cevallos M.D. 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 IMPRESSION: Osteoporosis. REFERENCE: Bone mineral density: T-Score: Normal (T-score above or = -1.0) Low bone mass (T-score between -1.0 and -2.5) replaces thepreviously used term osteopenia Osteoporosis (T-score = or below -2.5) Z-Score: Within the expected range for age (Z-score above -2.0) Below the expected range for age (Z-score is -2.0 or below) Please see below follow up recommendations. Medical evaluation forsecondary causes of low bone mineral density may be appropriate. FRAX is a World Health Organization validated fracture risk assessmenttool that calculates a person's 10 year probability of a major osteoporosisrelated fracture and hip fracture. According to the National OsteoporosisFoundation guidelines, postmenopausal women and men age 50 or older with low bonemass and a 10 year probability of a major osteoporosis related fracture = or greater than 20% or a 10 year probability of a hip fracture = or greaterthan 3% should be considered for pharmacological treatment for the preventionof osteoporosis. For further information, including treatment recommendations, please referto the 2019 ISCD Official Positions (http://www.iscd.org) and the NOF's Clinician's Guide to Prevention and Treatment of Osteoporosis (http://www.nof.org/professionals/clinical-guidelines) THIS IS AN ELECTRONICALLY VERIFIED FINAL REPORT 04/24/2024 10:51 AM - Electronically signed by Reddy Cevallos M.D. MF: [id number] Report ID: [id number] Reading Location: [id number] Martha Lovell MD IMG DXA PROCEDURES Final Result * COLONOSCOPY (03/23/2023 10:50 AM CDT) Anatomical Region Laterality Modality Other Narrative Procedure Note Ellen Cody MD - 03/23/2023 10:50 AM CDT [facility] Patient Name: Rosanna Nava Procedure Date: 03/23/2023 10:50AM Date of : 1960 Admit Type: Outpatient Age: 63 Gender: Female Attending MD: Ellen Cody M.D. Room: [facility] ENDOSCOPY ROOM 1 Note Status: Finalized Patient Profile: Last Colonoscopy: January 2018. h/o colon polyps. h/o anal cancer post chemotherapy and radiation.H/o colo-vaginal fistula post low anterior resection.No family history of colon cancer Procedure: Colonoscopy Indications: High risk colon cancer surveillance: Personalhistory of colonic polyps, High risk colon cancer surveillance: Personal history of colon cancer,Last colonoscopy: January 2018 Referring MD: Martha Lovell M.D. Providers: Ellen Cody M.D. Impression: - Deformed low sphincter pressure in the anal canal from previous radiation - The entire examined colon is normal. - No specimens collected. Recommendation: - Repeat colonoscopy in 5 years for surveillance. Medicines: Monitored Anesthesia Care Complications: No immediate complications. Estimated Blood Loss: Estimated blood loss: none. Procedure: Pre-Anesthesia Assessment: - Prior to the procedure, a History and Physicalwas performed, and patient medications and allergieswere reviewed. The patient's tolerance of previous anesthesia was also reviewed. The risks andbenefits of the procedure and the sedation options and risks were discussed with the patient. All questions were answered, and informed consent was obtained. Prior Anticoagulants: The patient has taken noanticoagulant or antiplatelet agents. ASA Grade Assessment: Per anesthesia note and evaluation. After reviewing the risks and benefits, the patient was deemed in satisfactory condition to undergo the procedure. The benefits, risks and alternatives of theprocedure and sedation were discussed and informed consentwas obtained. All questions were answered. Please referto the signed informed consent document in the medical record. The bowel preparation used was Miralax and bisacodyl tablets via split dose instruction. The scope was passed under direct vision. The Pediatric Colonoscope [id number] was introducedthrough the anus and advanced to the the cecum, identifiedby appendiceal orifice and ileocecal valve. Thequality of the bowel preparation was good. Bowel prep was administered using a split dose. Findings: The perianal and digital rectal examinations were normal. The anuswas somewhat deformed. No perianal skin lesions or anal canal lesions. The cecum appeared normal. The colon (entire examined portion) appeared normal. No polyps and no mass lesions noted The rectum appeared normal. It was difficult to retro flex in therectum from previous radiation and the fixation of the rectal wall but nomass lesions noted Electronically signed by Ellen Cody M.D. Ellen Cody M.D. 03/23/2023 12:51:19 PM Number of Addenda: 0 Note Initiated On: 03/23/2023 10:50 AM Procedure Code(s): --- Professional --- 74520, Colonoscopy, flexible; diagnostic, including collection of specimen(s) by brushing or washing, when performed (separateprocedure) Diagnosis Code(s): --- Professional --- Z86.010, Personal history of colonic polyps Z85.038, Personal history of other malignant neoplasm of largeintestine CPT copyright 2020 [employer]. All rights reserved. The codes documented in this report are preliminary and upon tank furnace operator reviewmay be revised to meet current compliance requirements. Recognized by the [employer] for promoting quality in endoscopy us Ellen Cody MD ENDOSCOPY PROCEDURES Final Result * CT Lung Cancer Screening (10/27/2022 6:57 AM CDT) Anatomical Region Laterality Modality Chest N/A Computed Tomogra phy 10/27/2022 8:36 AM CDT Impressions 10/27/2022 8:36 AM CDT 1. LungRADS Category 2 (benign) . Recommend Low dose Screening CT of chest in 12 months. 2. Right lower lobe 4 mm nodule. 3. Moderate centrilobular emphysematous changes. LungRADS Categories: 1 - Negative (no nodules, or only benign calcified or fat-containing nodules) 2 - Benign Appearance or Behavior (nodules with very low likelihood of becoming a clinically active cancer due to size or lack of growth) 3 - Probably Benign (probably benign findings-short term follow up suggested; includes nodules with a low likelihood of becoming a clinically active cancer) 4A,4B,4X - Suspicious (category 3 or 4 nodules with findings for which additional diagnostic testing and/or tissue sampling is recommended) S - Other (clinically significant or potentially clinically significant findings (non-lung cancer) C - Prior Lung Cancer (modifier for patients with a prior diagnosis of lung cancer who return to screening) Electronically signed by: Kwame Pereira II, D.O. Narrative 10/27/2022 8:36 AM CDT EXAMINATION: Lung cancer screening CT of the Chest without intravenous contrast HISTORY: Lung Cancer Screening TECHNIQUE: Low radiation dose chest protocol. No intravenous contrast. Reconstructed slice width 1.[address] Dose Index 2.36 mGy. Dose-length product 86.1 mGy-cm. COMPARISON: Multiple priors most recent dated 10/18/2021. FINDINGS: Lung nodules or findings of lung cancer: Right lower lobe 4 mm nodule, table position 459.4. Smoking related lung disease: emphysema Other findings: Calcified granulomas in the lung parenchyma. Moderate centrilobular emphysematous changes. Chest port terminates in the superior cavoatrial junction. Thyroid is unremarkable. Aortic and coronary artery atherosclerosis is demonstrated. No pericardial effusion. Upper abdominal structures are unremarkable as seen. No acute osseous abnormality. No suspicious lytic or sclerotic lesions. Mild multilevel endplate changes in the visualized spine. Procedure Note Kwame Pereira II, DO - 10/27/2022 EXAMINATION: Lung cancer screening CT of the Chest without intravenous contrast HISTORY: Lung Cancer Screening TECHNIQUE: Low radiation dose chest protocol. No intravenous contrast. Reconstructed slice width 1.[address] Dose Index 2.36 mGy. Dose-length product 86.1 mGy-cm. COMPARISON: Multiple priors most recent dated 10/18/2021. FINDINGS: Lung nodules or findings of lung cancer: Right lower lobe 4 mm nodule, table position 459.4. Smoking related lung disease: emphysema Other findings: Calcified granulomas in the lung parenchyma. Moderate centrilobular emphysematous changes. Chest port terminates in the superior cavoatrial junction. Thyroid is unremarkable. Aortic and coronary artery atherosclerosis is demonstrated. No pericardial effusion. Upper abdominal structures are unremarkable as seen. No acute osseous abnormality. No suspicious lytic or sclerotic lesions. Mild multilevel endplate changes in the visualized spine. IMPRESSION: 1. LungRADS Category 2 (benign) . Recommend Low dose Screening CT of chest in 12 months. 2. Right lower lobe 4 mm nodule. 3. Moderate centrilobular emphysematous changes. LungRADS Categories: 1 - Negative (no nodules, or only benign calcified or fat-containing nodules) 2 - Benign Appearance or Behavior (nodules with very low likelihood of becoming a clinically active cancer due to size or lack of growth) 3 - Probably Benign (probably benign findings-short term follow up suggested; includes nodules with a low likelihood of becoming a clinically active cancer) 4A,4B,4X - Suspicious (category 3 or 4 nodules with findings for which additional diagnostic testing and/or tissue sampling is recommended) S - Other (clinically significant or potentially clinically significant findings (non-lung cancer) C - Prior Lung Cancer (modifier for patients with a prior diagnosis of lung cancer who return to screening) Electronically signed by: Kwame Pereira II, D.O. us Macho Diaz MD IMG CT PROCEDURES Final Result * Hepatitis C antibody (06/11/2020 11:49 AM AWNING CRAFTSPERSON) Hep C Ab Nonreactive Nonreactive ALLI SOLORZANO Comment: Interpretive Data Nonreactive: Antibodies to HCV not detected. Does NOT exclude the possibility of recent exposure to HCV. Equivocal: Equivocal for HCV antibodies. Supplemental molecular testing will be automatically performed to determine infection status in accordance with current CDC screening recommendations. Reactive: Positive for HCV antibodies. This may represent current or past HCV infection. Supplemental molecular testing will be automatically performed to determine current infection status in accordance with current CDC screening recommendations. Interpretive data was last revised on 2019. Blood specimen (specimen) 06/11/2020 11:49 AM AWNING CRAFTSPERSON 06/11/2020 4:29 PM AWNING CRAFTSPERSON us Martha Lovell MD LAB MICROBIOLOGY - GENERA L ORDERABLES Final Result ALLI SOLORZANO [id number] Department [place] [address] from Last 3 Months or Most Recently Relevant to Health Maintenance Insurance [facility] MEDIC[facility] ADVANTAGE [facility] Address: [facility] [address] [place] [address] [facility] MEDICARE ADVANTAGE [facility] Address: [id number] [place] [address] Advance Directives For more information, please contact: [phone] * Full Code (Latest Code Status on File) Date Activated Date Inactivated Comments 11/15/2023 8:01 PM 11/17/2023 5:05 PM * Full Code Date Activated Date Inactivated Comments 03/23/2023 10:52 AM 03/23/2023 5:49 PM * Full Code Date Activated Date Inactivated Comments 03/23/2023 10:51 AM 03/23/2023 10:52 AM * Full Code Date Activated Date Inactivated Comments 02/10/2018 8:40 AM 02/10/2018 1:48 PM Care Teams Sanitarian Relationship Specialty [place] [address] [address] PCP - General Family Medicine 06/08/19 [place] [address] [address] [facility] [address] [place] [address] Consulting Physician Cardiovascular Disease 11/18/23 [place] [address] [address] [facility] [address] [place] [address] Consulting Physician Pulmonary Disease 03/22/24
--- OUTSIDE RECORDS SUMMARY | 2024-08-31 12:13 | XMS_ITS | Clinical Summary ---
Author Organization [facility] Address [address] [place] [address] Phone Care Team Providers Care Wallpaper Installer Name Role Phone Michael Zhou MD Primary Care Provider [phone] Allergies No known active allergies Medications levothyroxine (SYNTHROID) 100 MCG Tablet Take 100 mcg by mouth daily. Active clopidogrel (PLAVIX) 75 MG Tablet Take 75 mg by mouth daily. Active aspirin 81 MG Chewable Tablet Take 81 mg by mouth daily. Active atorvastatin (LIPITOR) 40 MG Tablet Take 40 mg by mouth daily. Active furosemide (LASIX) 40 MG Tablet Take 1 Tab by mouth 2 times daily (with meals). 60 Tab 0 6 Active loperamide (IMODIUM) 2 MG CapsuleIndicatio ns:Diarrhea Take 2 mg by mouth 4 times daily as needed for Diarrhea. Indications: Diarrhea Active OXYGEN CONCENTRATOR take 2 L by inhalation continuous. Active OXYGEN TANK PORTABLE take 2 L by inhalation as needed (when not using home oxygen concentrator). Active tiotropiume-olod aterol (STIOLTO RESPIMAT) 2.5-2.5 MCG/ACT Aerosol Solution take 2 Puffs by inhalation every morning. Active Albuterol Sulfate (PROAIR RESPICLICK) 108 (90 BASE) MCG/ACT AEROSOL POWDER, BREATH ACTIVATEDIndicat ions:Reversible Obstructive Airway Disease take 2 Puffs by inhalation every 6 hours as needed (wheezing). Indications: Reversible Obstructive Lung Disease Active nicotine (NICODERM CQ) 21 MG/24HR PATCH 24 HRIndications:Ni cotine Dependence 1 Patch by Transdermal route every 24 hours. Indications: Nicotine Addiction Active ibuprofen (MOTRIN) 600 MG Tablet Take 1 Tab by mouth every 8 hours. 30 Tab 7 Active HYDROcodone-acet aminophen (NORCO) 5-325 MG Tablet Take 1 Tab by mouth every 6 hours as needed for Pain. 15 Tab 7 Active Active Problems Problem Noted Date Diagnosed Date Acute respiratory distress 10/20/2015 Acute bronchitis 10/20/2015 PVD (peripheral vascular disease) 10/20/2015 Essential hypertension 10/20/2015 Acquired hypothyroidism 10/20/2015 History of stroke 10/20/2015 Social History Tobacco Use Types Packs/Day Years Used Date Smoking Tobacco: Every Day Cigarettes Alcohol Use Standard Drinks/Week Comments Yes 3 (1 standard drink = 0.6 oz pur e alcohol) Comments No Sex and Gender Information Value Date Recorded Sex Assigned at Not on file Legal Sex Female 7:58 PM CDT Gender Identity Not on file Sexual Orientation Not on file Last Filed Vital Signs Vital Sign Reading Time Taken Comments Blood Pressure 159/91 11/18/2016 12:26 AM CDT Pulse 85 11/18/2016 12:26 AM CDT Temperature 36.3 C (97.3 F) 11/17/2016 10:14 PM CDT Respiratory Rate 16 11/18/2016 12:26 AM CDT Oxygen Saturation 95% 11/17/2016 10:14 PM CDT Inhaled Oxygen Concentration - - Weight 63.5 kg (140 lb) 11/17/2016 10:14 PM CDT Height 153.7 cm (5' 0.5 ) 11/17/2016 10:14 PM CD T Body Mass Index 26.89 11/17/2016 10:14 PM CDT Plan of Treatment Health Maintenance Due Date Last Done Comments DEXA Bone Density 1960 Hepatitis C Virus (HCV) Screening 1960 TdaP Immunization 1960 Colonoscopy 01/17/2004 Colorectal Cancer Screening 01/17/2004 Cologuard 2009 Immunochemical Fecal Occult Blood 2009 Mammogram 2009 Pneumococcal Immunization (5 0+ years) (1 of 1 - PCV) 2009 Zoster Immunization (1 of 2) 2009 Influenza Immunization (#1) 2024 SARS-COV-2 Immunization ( - 2023- season) 2024 Respiratory Syncytial Virus (RSV) Immunization (Adult) (1 - 1-dose 75+ series) 2034 Hepatitis B Immunization Aged Out No longer eligible based on patient's age to complete this topic Meningococcal Immunization (ACWY) Aged Out No longer eligible based on patient's age to complete this topic Pneumococcal Immunization Combined Aged Out No longer eligible based on patient's age to complete this topic Rotavirus Immunization Aged Out No lo nger eligible based on patient's age to complete this topic Insurance MEDICARE Advance Directives * Full Code (Latest Code Status on File) Date Activated Date Inactivated Comments 10/30/2015 10:20 AM * Full Code Date Activated Date Inactivated Comments 10/20/2015 4:36 PM 10/23/2015 6:15 PM CPR-Full Sunny atment: FULL ARREST: Attempt Resuscitation/CPR wit intubation and mechanical ventilation. PRE-ARREST: Use entire range of life support measures to stabilize the patient. Care Teams Wallpaper Installer Relationship Specialty Start Date End Date Michael Zhou MD [address] [place] [address] PCP - General Internal Medicine 10/20/15
--- OUTSIDE RECORDS SUMMARY | 2024-08-31 12:13 | XMS_ITS ---
Author Organization [facility] Address [address] [place] [place] [address] Care Team Providers Care Buoy Tender Name Role Phone Martha Lovell MD Primary Care Provider [phone] Tariq Canales MD Unavailable [phone] Macho Diaz MD Unavailable [phone] Active Problems Problem Noted Date Diagnosed Date Osteoporosis 04/22/2024 Medicare annual wellness visit, subsequent 03/22 Assessment & Plan (03/22/2024 12:34 PM CDT): Due for mammogram, bone density test Shingrix, Prevnar-20, Covid-19, influenza, RSV vaccines Advance directive discussed with patient 024 Assessment & Plan (03/22/2024 1:34 PM CDT): Handout given https://[facility].[place].gov/content/dam/soi/en/web/idph/files/forms/powerofattorney healt hcareform.pdf Bilateral carotid artery stenosis 11/18/2023 Assessment & Plan (03/22/2024 7:45 AM CDT): 10/14/2023 - Carotid US - Plaque in the right internal carotid artery moderate calcified. The right internal carotid artery has 60-79% stenosis. Plaque in the left internal carotid artery is moderate calcified. The left internal carotid artery has 60-79% stenosis. Consider follow-up study after six months Erisa Attorney recommends annual monitoring Assessment & Plan (11/18/2023 [...] Handouts given https://www.thoracic.org/patients/patient-resources/resources/pulmonary-hyperten eneida. pdf https://www.thoracic.org/patients/patient-resources/resources/pulmonary-hyperten eneida- jxdrjzdwp-qim-xizddirxq.pdf Pedal edema 08/13/2023 Elevated blood pressure reading 07/15/2023 Assessment & Plan (07/15/2023 12:30 PM GRAVE DIGGER): BP Readings from Last 4 Encounters: 07/15/23 154/84 03/23/23 113/68 06/16/22 136/82 04/01/22 123/77 168/82 on recheck today No history of elevation here in the office, but she does say that her BP was high when the [facility] nurse came to her home. Discussed [...] vaccine Assessment & Plan (07/15/2023 12:32 PM GRAVE DIGGER): Due for influenza, Shingrix, Covid-19, Prevnar-20, RSV Declined all vaccinations Discussed that Covid-19, RSV, and Shingrix are avail at local pharmacy Assessment & Plan (06/16/2022 8:55 AM GRAVE DIGGER): Due for influenza, Shingrix, Covid-19 booster, Prevnar-20 [...] medication Assessment & Plan (07/15/2023 12:30 PM GRAVE DIGGER): 06/16/2022 - Total 206; Trig 81; HDL 54; LDL 136 TSH 1.64 Atorvastatin 10 mg daily started May 2022 Epic refill history indicates that she only filled one 3-month supply in the last 12 months. Assessment & Plan (06/16/2022 4:36 PM GRAVE DIGGER): Spoke with patient on the phone at [...] lungs Assessment & Plan (07/14/2023 7:44 PM GRAVE DIGGER): 09/2021 - Chest CT - mild emphysema. [...] 09/16/2023 Assessment & Plan (06/16/2022 6:13 AM GRAVE DIGGER): 09/2021 - Chest CT - mild emphysema. [...] today Assessment & Plan (07/15/2023 12:24 PM GRAVE DIGGER): 05/2020 - H/H 16.1/50.7 05/2021 - H/H 16.3/50.9 05/2022 - H/H 17.0/54.2 Today - H/H 17.1/54.9 Likely assoc with TOB use Check erythropoietin level today Assessment & Plan (06/16/2022 2:37 PM GRAVE DIGGER): 05/2020 - H/H 16.1/50.7 06/14/2021 - H/H 16.3/50.9 06/16/2022 - H/H 17.0/54.2 Likely assoc with TOB use stable Assessment & Plan (06/14/2021 9:21 AM GRAVE DIGGER): 05/2020 - H/H 16.1/50.7 Likely assoc with TOB use Mammogram declined 06/14/2021 Assessment & Plan (03/22/2024 1:35 PM CDT): Encouraged mammogram. Handout given https://www.cancer.org/content/dam/cancer-org/online-documents/en/pdf/infographi cs/7- kaikuk-bk-pmya-hmgou-pwbggdm-d-mammogram.pdf Assessment & Plan (07/15/2023 10:35 AM GRAVE DIGGER): Encouraged mammogram. Handout given https://www.cancer.org/content/dam/cancer-org/online-documents/en/pdf/infographi cs/7- tshqig-te-fucd-xyrly-uztbrwm-t-mammogram.pdf Assessment & Plan (06/16/2022 8:59 AM GRAVE DIGGER): Encouraged mammogram. handout given https://www.cdc.gov/cancer/breast/pdf/fleayw-ikqyqo-kedk-sheet-508.pdf Assessment & Plan (06/14/2021 9:20 AM GRAVE DIGGER): we discussed screening in depth and patient [...] day Assessment & Plan (07/15/2023 12:27 PM GRAVE DIGGER): Doxepin 10 mg QHS - doesn't help with sleep Reviewed sleep hygiene. Will try Ambien 5 mg QHS PRN Assessment & Plan (06/16/2022 8:58 AM GRAVE DIGGER): Doxepin 10 mg QHS prescribed May 2020 [...] us know if prescription has a high vll-ck-dqydmj cost Assessment & Plan (06/14/2021 8:42 AM GRAVE DIGGER): Doxepin 10 mg QHS prescribed May 2020 Patient only filled once (30 day supply) Assessment & Plan (06/11/2020 3:02 PM GRAVE DIGGER): Limit screen time (including T.V., tablet, computer, AND smart phone) to less than 2 hours daily No screen time within 1 hour of bed time Never sleep with the TV on. Start doxepin Dental disease 06/11/2020 Assessment & Plan (06/11/2020 12:51 PM GRAVE DIGGER): Form completed for [facility] incase patient changes her mind and decides to get the dental work [address] [place] [address] p [phone] f [phone] Right-sided chest wall pain 06/11/2020 Assessment & [...] hospital Assessment & Plan (07/15/2023 12:29 PM GRAVE DIGGER): History of pulmonary hypertension diagnosed 05/2008 Thought [...] test Assessment & Plan (06/11/2020 3:06 PM GRAVE DIGGER): History of pulmonary hypertension diagnosed 05/2008 Thought [...] stable Assessment & Plan (07/14/2023 7:45 PM GRAVE DIGGER): Incidental finding on CT Chest 05/2018 Continue ASA stable Assessment & Plan (06/16/2022 6:09 AM GRAVE DIGGER): Incidental finding on CT Chest 05/2018 Continue ASA Assessment & Plan (06/13/2021 8:22 AM GRAVE DIGGER): Incidental finding on CT Chest 05/2018 Continue ASA Assessment & Plan (06/11/2020 10:44 AM GRAVE DIGGER): Incidental finding on CT Chest 05/2018 Continue ASA Assessment & Plan (06/08/2019 10:26 AM GRAVE DIGGER): Incidental finding on CT Chest 05/2018 Continue [...] daily Assessment & Plan (07/14/2023 7:45 PM GRAVE DIGGER): History of stent placement Currently asymptomatic. Continue aspirin 81 mg daily Encourage smoking cessation Assessment & Plan (06/16/2022 2:36 PM GRAVE DIGGER): History of stent placement Currently asymptomatic. 06/16/2022 - Cr 0.68, eGFR 98 Total 206; Trig 81; HDL 54; LDL 136 Assessment & Plan (06/13/2021 8:23 AM GRAVE DIGGER): History of stent placement Currently asymptomatic. Assessment & Plan (06/11/2020 10:45 AM GRAVE DIGGER): History of stent placement Currently asymptomatic. Assessment & Plan (06/08/2019 10:29 AM GRAVE DIGGER): History of stent placement Currently asymptomatic. Tobacco [...] insurance may not cover Provided information for [id number] for resources Encouraged cessation Assessment & Plan (07/14/2023 7:47 PM GRAVE DIGGER): Encouraged cessation Assessment & Plan (06/16/2022 6:14 AM GRAVE DIGGER): Encouraged cessation Assessment & Plan (01/21/2022 1:22 PM CDT): Encouraged cessation Assessment & Plan (06/14/2021 9:20 AM GRAVE DIGGER): 10/19/2019 - Chest CT - multiple pulmonary nodules stable since previous w/ interval resolution of the nodule pleural-based right base; COPD; stable granulomata; Atherosclerosis Encouraged smoking cessation Assessment & Plan (06/11/2020 3:06 PM GRAVE DIGGER): Encouraged cessation History of rectal cancer 06/08/2019 [...] wall but no mass lesions Dr. Ellen Turner [facility] Assessment & Plan (07/14/2023 7:41 PM GRAVE DIGGER): 01/2018 - colonoscopy - digital rectal exam [...] wall but no mass lesions Dr. Ellen Turner [facility] Assessment & Plan (06/16/2022 8:59 AM GRAVE DIGGER): 01/2018 - colonoscopy - digital rectal exam w/ hard fibrotic anal canal from previous radiation. No anal or violetta anal lesions. colon (entire examined portion) normal. No polyps. At the colo-anal anstomosis localized area of erythema, biopsy for histology performed Pathology - No pathologic diagnosis Dr. Ellen Turner [facility] Recommended 5 year follow-up. Will be due this . Longstanding fecal incontinence as a result of the surgeries. Patient wears adult protective undergarments. Discussed repeat colonoscopy with patient today Will provide reminder and referral in Jan 2023 Assessment & Plan (06/13/2021 8:23 AM GRAVE DIGGER): Screening up to date Will need repeat c-scope in 2022 Longstanding fecal incontinence as a result of the surgeries. Patient wears adult protective undergarments. Assessment & Plan (06/11/2020 3:02 PM GRAVE DIGGER): Screening up to date Will need repeat c-scope in 2022 Longstanding fecal incontinence as a result of the surgeries. Patient wears adult protective undergarments. Assessment & Plan (06/08/2019 10:27 AM GRAVE DIGGER): Screening up to date Will need repeat [...] year Assessment & Plan (07/15/2023 12:27 PM GRAVE DIGGER): Patient screened for future fall risk; documentation of no falls in the past year or only 1 fall without injury in the past year Assessment & Plan (06/16/2022 8:43 AM GRAVE DIGGER): Patient screened for future fall risk; documentation of no falls in the past year or only 1 fall without injury in the past year Assessment & Plan (06/14/2021 8:42 AM GRAVE DIGGER): Patient screened for future fall risk; documentation of no falls in the past year or only 1 fall without injury in the past year Assessment & Plan (06/11/2020 3:02 PM GRAVE DIGGER): Patient screened for future fall risk; documentation of no falls in the past year or only 1 fall without injury in the past year Assessment & Plan (06/08/2019 10:27 AM GRAVE DIGGER): Patient screened for future fall risk; documentation [...] . Assessment & Plan (07/15/2023 9:56 AM GRAVE DIGGER): Wt Readings from Last 5 Encounters: 07/15/23 64.9 kg (143 lb) 03/23/23 59 kg (130 lb) 06/16/22 59 kg (130 lb) 04/01/22 60.4 kg (133 lb 3.2 oz) 01/21/22 61.9 kg (136 lb 6.4 oz) 13 lbs weight gain since last office visit discussed healthy diet, exercise and adequate sleep Body mass index is 23.8 kg/m . Assessment & Plan (06/16/2022 8:43 AM GRAVE DIGGER): Wt Readings from Last 3 Encounters: 06/16/22 [...] . Assessment & Plan (06/14/2021 8:42 AM GRAVE DIGGER): discussed healthy diet, exercise and adequate sleep Body mass index is 23.53 kg/m . Assessment & Plan (06/11/2020 3:02 PM GRAVE DIGGER): discussed healthy diet, exercise and adequate sleep Body mass index is 24.79 kg/m . Assessment & Plan (06/08/2019 10:30 AM GRAVE DIGGER): discussed healthy diet, exercise and adequate sleep [...] current Assessment & Plan (07/14/2023 7:46 PM GRAVE DIGGER): 05/2020 - TSH 2.32 Levothyroxine 100 mcg daily 06/14/2021 - TSH 6.43 (H) Levothyroxine increased to 112 mcg daily 06/16/2022 - TSH 1.64 Stable on current Assessment & Plan (06/16/2022 2:36 PM GRAVE DIGGER): 05/2020 - TSH 2.32 Levothyroxine 100 mcg daily 06/14/2021 - TSH 6.43 (H) Levothyroxine increased to 112 mcg daily 06/16/2022 - TSH 1.64 Stable on current Assessment & Plan (06/13/2021 8:22 AM GRAVE DIGGER): 05/2020 - TSH 2.32 Levothyroxine 100 mcg daily Assessment & Plan (06/11/2020 3:02 PM GRAVE DIGGER): Labs today Assessment & Plan (06/08/2019 10:27 AM GRAVE DIGGER): Release for records from [facility] in [place], [place] For lab results in 2019 Emphysema lung 07/21/2010 Overview (06/10/2020): Pulmonary - Dr. Diaz Assessment & Plan (03/22/2024 7:49 AM CDT): 11/15/2023 - Chest CT PE protocol - No evidence of pulmonary embolism to the subsegmental level. Diffuse centrilobular emphysema Trelegy Ellipta 100-62.5-25 mcg Albuterol as needed Managed by Pulmonary Recent office visit earlier this month - Israelo changed to Trelegy Assessment & Plan (11/18/2023 5:19 PM CDT): 11/15/2023 - Chest CT PE protocol - No evidence of pulmonary embolism to the subsegmental level. Diffuse centrilobular emphysema Stiolto inhaler Albuterol as needed Managed by Pulmonary Repeat Chest CT scheduled 03/16/2024 Assessment & Plan (07/14/2023 7:46 PM GRAVE DIGGER): Stiolto inhaler Albuterol as needed Managed by Pulmonary Assessment & Plan (06/16/2022 6:12 AM GRAVE DIGGER): Stiolto inhaler Managed by Pulmonary Assessment & Plan (06/13/2021 8:22 AM GRAVE DIGGER): Stiolto inhaler Managed by Pulmonary Assessment & Plan (06/11/2020 10:45 AM GRAVE DIGGER): Maintains follow-up with Pulmonary Encouraged smoking cessation Assessment & Plan (06/08/2019 10:24 AM GRAVE DIGGER): Stable without inhalers Maintains follow-up with Pulmonary Encouraged smoking cessation Current Treatment and Therapy Plans No current plan information found. Past Treatment and Therapy Plans No past plan information found. Lifetime Dose Tracking * Chemical Lifetime Dose Automatic Entry Manual Entr y DLP 167.7 mGycm 167.7 mGycm 0 mGycm CTDIvol 4.72 mGy 4.72 mGy 0 mGy Resolved Problems Problem Noted Date Diagnosed Date Resolved Date Hospital discharge follow-up 11/18/2023 03/22/2024 Assessment & Plan (11/18/2023 5:20 PM CDT): Date Admitted: 11/15/2023 Date Discharged: 11/17/2023 Facility Name: [facility] I have personally reviewed all notes from [...] 06/16/2022 Assessment & Plan (06/16/2022 8:40 AM GRAVE DIGGER): https://www.cdc.gov/cancer/cervical/pdf/cervical_facts.pdf Right flank pain 01/21/2022 06/16/2022 Assessment [...] Hearing loss due to cerumen impaction, right 2 01/21/2022 Assessment & Plan (11/22/2021 10:11 AM [...] 01/21/2022 Assessment & Plan (06/14/2021 9:21 AM GRAVE DIGGER): Offered condolences and sympathy Encouraged patient to call if symptoms are severe or prolonged Excessive cerumen in ear canal, left 06/14/2021 01/21/2022 Assessment & Plan (06/14/2021 9:22 AM GRAVE DIGGER): Not currently causing discomfort or affecting hearing. Discussed OTC drops, irrigation in the shower Discouraged ear wax candles Annual physical exam 06/08/2019 023 Assessment & Plan (06/16/2022 6:12 AM GRAVE DIGGER): 06/14/2021 - labs Cr 0.68, eGFR 98 Total 169; Trig 90; HDL 35; LDL 116 Assessment & Plan (06/11/2020 3:02 PM GRAVE DIGGER): recommend at least 10 minutes of moderate intensity exercise most days of the week with a goal of 150 minutes weekly. Assessment & Plan (06/08/2019 10:26 AM GRAVE DIGGER): Patient independant in all ADLs and IADLs. [...]
--- OUTSIDE RECORDS SUMMARY | 2024-08-31 12:13 | XMS_ITS | Clinical Summary ---
Author Organization [facility] Address [address] [place] [address] Care Team Providers Care Merchant Tailor Name Role Phone Martha Lovell MD Primary Care Provider [phone] Tariq Canales MD Unavailable Macho Diaz MD Unavailable [phone] Allergies No known active allergies Medications aspirin [...] RSV vaccines Advance directive discussed with patient Assessment & Plan (03/22/2024 1:34 PM CDT): Handout given https://dp.[place].gov/content/dam/soi/en/web/idph/files/forms/powerofattorney healt hcareform.pdf Bilateral carotid artery stenosis 11/18/2023 Assessment & Plan (03/22/2024 7:45 AM CDT): 10/14/2023 - Carotid US - Plaque in the right internal carotid artery moderate calcified. The right internal carotid artery has 60-79% stenosis. Plaque in the left internal carotid artery is moderate calcified. The left internal carotid artery has 60-79% stenosis. Consider follow-up study after six months Gas Appliance Mechanic recommends annual monitoring Assessment & Plan (11/18/2023 [...] Handouts given https://www.thoracic.org/patients/patient-resources/resources/pulmonary-hyperten eneida. pdf https://www.thoracic.org/patients/patient-resources/resources/pulmonary-hyperten eneida- lgtkvfglj-yyn-hxalemdoe.pdf Pedal edema 08/13/2023 Elevated blood pressure reading 07/15/2023 Assessment & Plan (07/15/2023 12:30 PM MANUFACTURING QUALITY INSPECTOR): BP Readings from Last 4 Encounters: 07/15/23 154/84 03/23/23 113/68 06/16/22 136/82 04/01/22 123/77 168/82 on recheck today No history of elevation here in the office, but she does say that her BP was high when the [facility] nurse came to her home. Discussed starting [...] vaccine Assessment & Plan (07/15/2023 12:32 PM MANUFACTURING QUALITY INSPECTOR): Due for influenza, Shingrix, Covid-19, Prevnar-20, RSV Declined all vaccinations Discussed that Covid-19, RSV, and Shingrix are avail at local pharmacy Assessment & Plan (06/16/2022 8:55 AM MANUFACTURING QUALITY INSPECTOR): Due for influenza, Shingrix, Covid-19 booster, Prevnar-20 [...] medication Assessment & Plan (07/15/2023 12:30 PM MANUFACTURING QUALITY INSPECTOR): 06/16/2022 - Total 206; Trig 81; HDL 54; LDL 136 TSH 1.64 Atorvastatin 10 mg daily started May 2022 Epic refill history indicates that she only filled one 3-month supply in the last 12 months. Assessment & Plan (06/16/2022 4:36 PM MANUFACTURING QUALITY INSPECTOR): Spoke with patient on the phone at [...] lungs Assessment & Plan (07/14/2023 7:44 PM MANUFACTURING QUALITY INSPECTOR): 09/2021 - Chest CT - mild emphysema. [...] 09/16/2023 Assessment & Plan (06/16/2022 6:13 AM MANUFACTURING QUALITY INSPECTOR): 09/2021 - Chest CT - mild emphysema. [...] today Assessment & Plan (07/15/2023 12:24 PM MANUFACTURING QUALITY INSPECTOR): 05/2020 - H/H 16.1/50.7 05/2021 - H/H 16.3/50.9 05/2022 - H/H 17.0/54.2 Today - H/H 17.1/54.9 Likely assoc with TOB use Check erythropoietin level today Assessment & Plan (06/16/2022 2:37 PM MANUFACTURING QUALITY INSPECTOR): 05/2020 - H/H 16.1/50.7 06/14/2021 - H/H 16.3/50.9 06/16/2022 - H/H 17.0/54.2 Likely assoc with TOB use stable Assessment & Plan (06/14/2021 9:21 AM MANUFACTURING QUALITY INSPECTOR): 05/2020 - H/H 16.1/50.7 Likely assoc with TOB use Mammogram declined 06/14/2021 Assessment & Plan (03/22/2024 1:35 PM CDT): Encouraged mammogram. Handout given https://www.cancer.org/content/dam/cancer-org/online-documents/en/pdf/infographi cs/7- bsejou-wy-vptu-nagmi-lfktkfd-n-mammogram.pdf Assessment & Plan (07/15/2023 10:35 AM MANUFACTURING QUALITY INSPECTOR): Encouraged mammogram. Handout given https://www.cancer.org/content/dam/cancer-org/online-documents/en/pdf/infographi cs/7- rkjeqg-po-ltvf-ltemj-gwsxscw-b-mammogram.pdf Assessment & Plan (06/16/2022 8:59 AM MANUFACTURING QUALITY INSPECTOR): Encouraged mammogram. handout given https://www.cdc.gov/cancer/breast/pdf/soorqp-srswsm-zvqw-sheet-508.pdf Assessment & Plan (06/14/2021 9:20 AM MANUFACTURING QUALITY INSPECTOR): we discussed screening in depth and patient [...] day Assessment & Plan (07/15/2023 12:27 PM MANUFACTURING QUALITY INSPECTOR): Doxepin 10 mg QHS - doesn't help with sleep Reviewed sleep hygiene. Will try Ambien 5 mg QHS PRN Assessment & Plan (06/16/2022 8:58 AM MANUFACTURING QUALITY INSPECTOR): Doxepin 10 mg QHS prescribed May 2020 [...] us know if prescription has a high cmm-xl-tlelqu cost Assessment & Plan (06/14/2021 8:42 AM MANUFACTURING QUALITY INSPECTOR): Doxepin 10 mg QHS prescribed May 2020 Patient only filled once (30 day supply) Assessment & Plan (06/11/2020 3:02 PM MANUFACTURING QUALITY INSPECTOR): Limit screen time (including T.V., tablet, computer, AND smart phone) to less than 2 hours daily No screen time within 1 hour of bed time Never sleep with the TV on. Start doxepin Dental disease 06/11/2020 Assessment & Plan (06/11/2020 12:51 PM MANUFACTURING QUALITY INSPECTOR): Form completed for [facility] incase patient changes her mind and decides to get the dental work [address] [place] [address] p [phone] f [phone] Right-sided chest wall pain 06/11/2020 Assessment & [...] hospital Assessment & Plan (07/15/2023 12:29 PM MANUFACTURING QUALITY INSPECTOR): History of pulmonary hypertension diagnosed 05/2008 Thought [...] test Assessment & Plan (06/11/2020 3:06 PM MANUFACTURING QUALITY INSPECTOR): History of pulmonary hypertension diagnosed 05/2008 Thought [...] stable Assessment & Plan (07/14/2023 7:45 PM MANUFACTURING QUALITY INSPECTOR): Incidental finding on CT Chest 05/2018 Continue ASA stable Assessment & Plan (06/16/2022 6:09 AM MANUFACTURING QUALITY INSPECTOR): Incidental finding on CT Chest 05/2018 Continue ASA Assessment & Plan (06/13/2021 8:22 AM MANUFACTURING QUALITY INSPECTOR): Incidental finding on CT Chest 05/2018 Continue ASA Assessment & Plan (06/11/2020 10:44 AM MANUFACTURING QUALITY INSPECTOR): Incidental finding on CT Chest 05/2018 Continue ASA Assessment & Plan (06/08/2019 10:26 AM MANUFACTURING QUALITY INSPECTOR): Incidental finding on CT Chest 05/2018 Continue [...] daily Assessment & Plan (07/14/2023 7:45 PM MANUFACTURING QUALITY INSPECTOR): History of stent placement Currently asymptomatic. Continue aspirin 81 mg daily Encourage smoking cessation Assessment & Plan (06/16/2022 2:36 PM MANUFACTURING QUALITY INSPECTOR): History of stent placement Currently asymptomatic. 06/16/2022 - Cr 0.68, eGFR 98 Total 206; Trig 81; HDL 54; LDL 136 Assessment & Plan (06/13/2021 8:23 AM MANUFACTURING QUALITY INSPECTOR): History of stent placement Currently asymptomatic. Assessment & Plan (06/11/2020 10:45 AM MANUFACTURING QUALITY INSPECTOR): History of stent placement Currently asymptomatic. Assessment & Plan (06/08/2019 10:29 AM MANUFACTURING QUALITY INSPECTOR): History of stent placement Currently asymptomatic. Tobacco [...] insurance may not cover Provided information for [id number] for resources Encouraged cessation Assessment & Plan (07/14/2023 7:47 PM MANUFACTURING QUALITY INSPECTOR): Encouraged cessation Assessment & Plan (06/16/2022 6:14 AM MANUFACTURING QUALITY INSPECTOR): Encouraged cessation Assessment & Plan (01/21/2022 1:22 PM CDT): Encouraged cessation Assessment & Plan (06/14/2021 9:20 AM MANUFACTURING QUALITY INSPECTOR): 10/19/2019 - Chest CT - multiple pulmonary nodules stable since previous w/ interval resolution of the nodule pleural-based right base; COPD; stable granulomata; Atherosclerosis Encouraged smoking cessation Assessment & Plan (06/11/2020 3:06 PM MANUFACTURING QUALITY INSPECTOR): Encouraged cessation History of rectal cancer 06/08/2019 [...] but no mass lesions Dr. Ellen Cody - [facility] Assessment & Plan (07/14/2023 7:41 PM MANUFACTURING QUALITY INSPECTOR): 01/2018 - colonoscopy - digital rectal exam [...] but no mass lesions Dr. Ellen Cody [facility] Assessment & Plan (06/16/2022 8:59 AM MANUFACTURING QUALITY INSPECTOR): 01/2018 - colonoscopy - digital rectal exam w/ hard fibrotic anal canal from previous radiation. No anal or violetta anal lesions. colon (entire examined portion) normal. No polyps. At the colo-anal anstomosis localized area of erythema, biopsy for histology performed Pathology - No pathologic diagnosis Dr. Ellen Cody [facility] Recommended 5 year follow-up. Will be due this . Longstanding fecal incontinence as a result of the surgeries. Patient wears adult protective undergarments. Discussed repeat colonoscopy with patient today Will provide reminder and referral in Jan 2023 Assessment & Plan (06/13/2021 8:23 AM MANUFACTURING QUALITY INSPECTOR): Screening up to date Will need repeat c-scope in 2022 Longstanding fecal incontinence as a result of the surgeries. Patient wears adult protective undergarments. Assessment & Plan (06/11/2020 3:02 PM MANUFACTURING QUALITY INSPECTOR): Screening up to date Will need repeat c-scope in 2022 Longstanding fecal incontinence as a result of the surgeries. Patient wears adult protective undergarments. Assessment & Plan (06/08/2019 10:27 AM MANUFACTURING QUALITY INSPECTOR): Screening up to date Will need repeat [...] year Assessment & Plan (07/15/2023 12:27 PM MANUFACTURING QUALITY INSPECTOR): Patient screened for future fall risk; documentation of no falls in the past year or only 1 fall without injury in the past year Assessment & Plan (06/16/2022 8:43 AM MANUFACTURING QUALITY INSPECTOR): Patient screened for future fall risk; documentation of no falls in the past year or only 1 fall without injury in the past year Assessment & Plan (06/14/2021 8:42 AM MANUFACTURING QUALITY INSPECTOR): Patient screened for future fall risk; documentation of no falls in the past year or only 1 fall without injury in the past year Assessment & Plan (06/11/2020 3:02 PM MANUFACTURING QUALITY INSPECTOR): Patient screened for future fall risk; documentation of no falls in the past year or only 1 fall without injury in the past year Assessment & Plan (06/08/2019 10:27 AM MANUFACTURING QUALITY INSPECTOR): Patient screened for future fall risk; documentation [...] . Assessment & Plan (07/15/2023 9:56 AM MANUFACTURING QUALITY INSPECTOR): Wt Readings from Last 5 Encounters: 07/15/23 64.9 kg (143 lb) 03/23/23 59 kg (130 lb) 06/16/22 59 kg (130 lb) 04/01/22 60.4 kg (133 lb 3.2 oz) 01/21/22 61.9 kg (136 lb 6.4 oz) 13 lbs weight gain since last office visit discussed healthy diet, exercise and adequate sleep Body mass index is 23.8 kg/m . Assessment & Plan (06/16/2022 8:43 AM MANUFACTURING QUALITY INSPECTOR): Wt Readings from Last 3 Encounters: 06/16/22 [...] . Assessment & Plan (06/14/2021 8:42 AM MANUFACTURING QUALITY INSPECTOR): discussed healthy diet, exercise and adequate sleep Body mass index is 23.53 kg/m . Assessment & Plan (06/11/2020 3:02 PM MANUFACTURING QUALITY INSPECTOR): discussed healthy diet, exercise and adequate sleep Body mass index is 24.79 kg/m . Assessment & Plan (06/08/2019 10:30 AM MANUFACTURING QUALITY INSPECTOR): discussed healthy diet, exercise and adequate sleep [...] current Assessment & Plan (07/14/2023 7:46 PM MANUFACTURING QUALITY INSPECTOR): 05/2020 - TSH 2.32 Levothyroxine 100 mcg daily 06/14/2021 - TSH 6.43 (H) Levothyroxine increased to 112 mcg daily 06/16/2022 - TSH 1.64 Stable on current Assessment & Plan (06/16/2022 2:36 PM MANUFACTURING QUALITY INSPECTOR): 05/2020 - TSH 2.32 Levothyroxine 100 mcg daily 06/14/2021 - TSH 6.43 (H) Levothyroxine increased to 112 mcg daily 06/16/2022 - TSH 1.64 Stable on current Assessment & Plan (06/13/2021 8:22 AM MANUFACTURING QUALITY INSPECTOR): 05/2020 - TSH 2.32 Levothyroxine 100 mcg daily Assessment & Plan (06/11/2020 3:02 PM MANUFACTURING QUALITY INSPECTOR): Labs today Assessment & Plan (06/08/2019 10:27 AM MANUFACTURING QUALITY INSPECTOR): Release for records from [facility] in [place], [place] For lab results in 2019 Emphysema [...] 03/16/2024 Assessment & Plan (07/14/2023 7:46 PM MANUFACTURING QUALITY INSPECTOR): Stiolto inhaler Albuterol as needed Managed by Pulmonary Assessment & Plan (06/16/2022 6:12 AM MANUFACTURING QUALITY INSPECTOR): Stiolto inhaler Managed by Pulmonary Assessment & Plan (06/13/2021 8:22 AM MANUFACTURING QUALITY INSPECTOR): Stiolto inhaler Managed by Pulmonary Assessment & Plan (06/11/2020 10:45 AM MANUFACTURING QUALITY INSPECTOR): Maintains follow-up with Pulmonary Encouraged smoking cessation Assessment & Plan (06/08/2019 10:24 AM MANUFACTURING QUALITY INSPECTOR): Stable without inhalers Maintains follow-up with Pulmonary Encouraged smoking cessation Resolved Problems Problem Noted Date Diagnosed Date Resolved Date Hospital discharge follow-up 11/18/2023 03/22/2024 Assessment & Plan (11/18/2023 5:20 PM CDT): Date Admitted: 11/15/2023 Date Discharged: 11/17/2023 Facility Name: [facility] I have personally reviewed all notes from [...] 06/16/2022 Assessment & Plan (06/16/2022 8:40 AM MANUFACTURING QUALITY INSPECTOR): https://www.cdc.gov/cancer/cervical/pdf/cervical_facts.pdf Right flank pain 01/21/2022 06/16/2022 Assessment [...] 01/21/2022 Assessment & Plan (06/14/2021 9:21 AM MANUFACTURING QUALITY INSPECTOR): Offered condolences and sympathy Encouraged patient to call if symptoms are severe or prolonged Excessive cerumen in ear canal, left 06/14/2021 01/21/2022 Assessment & Plan (06/14/2021 9:22 AM MANUFACTURING QUALITY INSPECTOR): Not currently causing discomfort or affecting hearing. Discussed OTC drops, irrigation in the shower Discouraged ear wax candles Annual physical exam 06/08/2019 023 Assessment & Plan (06/16/2022 6:12 AM MANUFACTURING QUALITY INSPECTOR): 06/14/2021 - labs Cr 0.68, eGFR 98 Total 169; Trig 90; HDL 35; LDL 116 Assessment & Plan (06/11/2020 3:02 PM MANUFACTURING QUALITY INSPECTOR): recommend at least 10 minutes of moderate intensity exercise most days of the week with a goal of 150 minutes weekly. Assessment & Plan (06/08/2019 10:26 AM MANUFACTURING QUALITY INSPECTOR): Patient independant in all ADLs and IADLs. 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 06/08/2019 Encounters Date Type Department Care Team Description 07/15/2024 9:16 AM MANUFACTURING QUALITY INSPECTOR - 07/15/2024 11:59 PM MANUFACTURING QUALITY INSPECTOR Hospital Encounter [facility] Imaging and Radiology [address] [place] [address] Martha Lovell MD Pulmonary nodules; Centrilobular emphysema (HCC); Tobacco dependence due to cigarettes; Abnormal chest CT Discharge Disposition: Discharge to home or self care 07/15/2024 Results Follow-Up [facility] at [address] [place] [address] Martha Lovell MD 06/30/2024 Telephone [facility] at [address] [place] [address] Martha Lovell MD Abnormal Chest CT 06/06/2024 9:45 AM MANUFACTURING QUALITY INSPECTOR Office Visit [place] Director Of [facility] at [address] [address] Francesca Marino NP Mixed hyperlipidemia (Primary Dx); Bilateral carotid artery stenosis; Peripheral arterial disease; Pulmonary hypertension (HCC); Atherosclerosis of swinomish arteries of extremities with intermittent claudication, bilateral legs; Carotid bruit, unspecified laterality from Last 3 Months Immunizations Immunization Administration Dates Next Due Influenza, Unspecified 12/24/2023(Deferr ed: Patient Refused),12/23/2020(Deferred: Patient decision),12/24/2019(Deferred: Patient decision) Surgical History Surgery Date Site/Laterality Comments COLONOSCOPY 10/16/2014 COLONOSCOPY 02/10/2018 HYSTERECTOMY 01/04/2001 RECTAL POLYPECTOMY 09/18/2006 RECTAL BIOPSY 05/12/2007 ILEOSTOMY 06/16/2007 RECTAL BIOPSY 09/03/2007 LOW ANTERIOR BOWEL RESECTION 05/31/2008 FISTULA REPAIR 08/28/2008 ILEOSTOMY CLOSURE 11/03/2008 ILIAC ARTERY STENT 12/23/2014 - 01/22/2015 FEMORAL ARTERY STENT 02/22/2015 ESOPHAGOGASTRODUODENOSCOPY 03/27/2010 COLONOSCOPY 03/23/2023 CARDIOVASCULAR STRESS TEST 10/14/2023 CARDIOVASCULAR STRESS TEST 07/23/2023 Medical History Medical History Date Comments Malignant neoplasm of rectum (HCC) 2006 Cerebrovascular accident (CVA) (HCC) Headache, tension-type COPD (chronic obstructive pulmonary disease) (HC C) Chronic diarrhea Atrial fibrillation (HCC) 2009 Graves disease 2009 H/O radioactive iodine thyroid ablation 02/29/20 10 H/O radioactive iodine thyroid ablation 08/09/19 11 Peripheral vascular disease 11/06/2014 Osteoporosis 04/22/2024 Family History Medical History Relation Name Comments Diabetes type II Daughter 1 Marcy [place] Hyperlipidemia Daughter 1 Marcy [place] Hypertension Daughter 1 Marcy [place] Obesity Daughter 1 Marcy [place] Cancer Daughter 2 Rebekah Heart disease Daughter 2 Rebekah No Known Problems Daughter 3 Ivonne Walls Unknown Family History Father No Known Problems Maternal Half-Sister 1 No Known Problems Maternal Half-Sister 2 Heart disease Maternal Half-Sister 3 Obesity Maternal Half-Sister 3 Coronary artery disease Mother Hypertension Mother Stroke Mother Breast cancer Neg Hx Colon cancer Neg Hx Ovarian cancer Neg Hx Relation Name Status Comments Daughter 1 Marcy [place]guero Alive Daughter 2 Rebekah Alive Daughter 3 Ivonne Walls Alive Father Maternal Half-Sister 1 Alive Maternal Half-Sister 2 Alive Maternal Half-Sister 3 Alive Mother (Age 69) Social History Tobacco Use Types Packs/Day Years Used Date Smoking Tobacco: Every Day Cigarettes 0.8 52.6 Started: 01/17/1972 Smokeless Tobacco: Current Tobacco Cessation:Ready to Q uit: Not Asked; Counseling Given: Not Answered Alcohol Use Standard Drinks/Week Comments Yes 0 (1 standard drink = 0.6 oz pur e alcohol) [facility] [employer] Answer Date Recorded In the past 12 months has [employer], [employer], oil, or water [facility] threatened to shut off services in your [...] 11/16/2023 How often do you attend chur or judaism services? Never 11/16/2023 Do you belong to any clubs o r organizations such as nondenominational groups, unions, fraternal or athletic groups, or [...] any time in the past 12 m [facility], were you homeless or living in a fdc (including now)? No 11/16/2023 Personal Safety Answer [...] on file Legal Sex Female 12:57 AM MANUFACTURING QUALITY INSPECTOR Gender Identity Not on file Sexual Orientation Not on file Obstetrics History Last Filed Vital Signs Vital Sign Reading Time Taken Comments Blood Pressure 122/71 06/06/2024 9:59 AM MANUFACTURING QUALITY INSPECTOR Pulse 77 06/06/2024 9:59 AM MANUFACTURING QUALITY INSPECTOR Temperature 36.2 C (97.2 F) 11/17/2023 11:43 AM CDT Respiratory Rate 18 06/06/2024 9:59 AM MANUFACTURING QUALITY INSPECTOR Oxygen Saturation 91% 11/17/2023 11:43 AM CDT Inhaled Oxygen Concentration - - Weight 61.2 kg (135 lb) 06/06/2024 9:59 AM MANUFACTURING QUALITY INSPECTOR Height 152.4 cm (5') 06/06/2024 9:59 AM MANUFACTURING QUALITY INSPECTOR Body Mass Index 26.37 06/06/2024 9:59 AM MANUFACTURING QUALITY INSPECTOR Plan of Treatment Health Maintenance Due Date Last Done Comments Hepatitis B Screening 1977 Pneumococcal vaccine 65+ (1 of 2 - PCV) 1978 Zoster Vaccine (1 of 2) 2009 Lung Cancer Screening 09/12/2024 03/16/2024 , 06/10/2023, 10/27/2022, Additional history exists Covid-19 Vaccine () 03/22/2025 06/29/2021, 01/08/2021, 12/11/2020 Postponed from 01/24/2024 (Patient declined, but will receive in the future) Depression Screening 03/22/2025 03/22/2024, 07/15/2023, 07/15/2023, Additional history exists Fall Risk Assessment 03/22/2025 03/22/2024, 11/17/2023, 07/15/2023, Additional history exists Well Visit 65+ 03/22/2025 03/22/2024, 06/26, 06/16/2022, Additional history exists Osteoporosis Screening-Bone Density Scan 04/22/2026 04/22/2024 Colon Cancer Screening-Colonoscopy 03/23/2028 03/23/2023, 02/10/2018, 10/18/2014, Additional history exists Hepatitis C Screening Completed 06/11/2020 Colon Cancer Screening-CT Colonography Discontinued 03/23/2023, 02/10/2018, 10/18/2014, Additional history exists Colon Cancer Screening-DNA Stool Discontinued 03/23/2023, 02/10/2018, 10/18/2014, Additional history exists Colon Cancer Screening-FIT Discontinued 03/23, 02/10/2018, 10/18/2014, Additional history exists Colon Cancer Screening-Sigmoidoscopy Discontinued 03/23/2023, 02/10/2018, 10/18/2014, Additional history exists Breast Cancer Screening-Mammogram Discontinued DTaP/Tdap/Td Vaccine Discontinued Influenza Vaccine Discontinued Procedures Procedure Name Priority Date/Time Associated Diagnosis Comments CT CHEST WO CONTRAST Schedule Routine, Read Routine (OP Routine) 07/15/2024 9:32 AM MANUFACTURING QUALITY INSPECTOR Pulmonary nodules Centrilobular emphysema (HCC) Tobacco dependence due to cigarettes Abnormal chest CT DEXA AXIAL SKELETON BONE DENSITY 1 OR MORE SITES Schedule Routine, Read Routine (OP Routine) 04/22/2024 11:39 AM MANUFACTURING QUALITY INSPECTOR Medicare annual wellness visit, subsequent Asymptomatic postmenopausal state COLONOSCOPY 03/23/2023 10:[address] LUNG CANCER SCREENING Schedule Routine, Read Routine (OP Routine) 10/27/2022 6:57 AM CDT Nicotine dependence, cigarettes, uncomplicated HEPATITIS C ANTIBODY Routine 06/11/2020 11:49 AM MANUFACTURING QUALITY INSPECTOR Annual physical exam Screening for viral disease from Last 3 Months or Most Recently Relevant to Health Maintenance Results * CT Chest WO Contrast (07/15/2024 9:32 AM MANUFACTURING QUALITY INSPECTOR) Anatomical Region Laterality Modality Body N/A Computed Tomogra phy 07/15/2024 4:14 PM MANUFACTURING QUALITY INSPECTOR Impressions 07/15/2024 4:14 PM MANUFACTURING QUALITY INSPECTOR 1. Severe emphysema. 2. Pulmonary hypertension. 3. If the patient qualifies I would recommend enrollment in lung cancer screening program. 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 MF: DAVID Report ID: [id number] Reading Location: [id number] us Martha Lovell MD IMG DXA PROCEDURES Final Result * COLONOSCOPY (03/23/2023 10:50 AM CDT) Anatomical Region Laterality Modality Other Narrative Procedure Note Ellen Cody MD - 03/23/2023 10:50 AM CDT [facility] Patient Name: Loca Brandy Procedure Date: 03/23/2023 10:50AM Date of : 1960 Admit Type: Outpatient Age: 63 Gender: Female Attending MD: Ellen Cody M.D. Room: [facility] ENDOSCOPY ROOM 1 Note Status: Finalized Patient [...] under direct vision. The Pediatric Colonoscope [id number] was introducedthrough the anus and advanced to [...] 10:50 AM Procedure Code(s): --- Professional --- 71388, Colonoscopy, flexible; diagnostic, including collection of specimen(s) by brushing or washing, when performed (separateprocedure) Diagnosis Code(s): --- Professional --- Z86.010, Personal history of colonic polyps Z85.038, Personal history of other malignant neoplasm of largeintestine CPT copyright 2020 [employer]. All rights reserved. The codes documented in this report are preliminary and upon swimming pool maintenance supervisor reviewmay be revised to meet current compliance requirements. Recognized by the [employer] for promoting quality [...] to screening) Electronically signed by: Kwame Pereira II D.OTrey Macho Diaz MD IM CT PROCEDURES Final Result * Hepatitis C antibody (06/11/2020 11:49 AM MANUFACTURING QUALITY INSPECTOR) Hep C Ab Nonreactive Nonreactive [facility] [...] 2019. Blood specimen (specimen) 06/11/2020 11:49 AM MANUFACTURING QUALITY INSPECTOR 06/11/2020 4:29 PM MANUFACTURING QUALITY INSPECTOR us Martha Lovell MD LAB MICROBIOLOGY - GENERA L ORDERABLES Final Result [facility] [id number] Department [place] [address] from Last 3 Months or Most Recently Relevant to Health Maintenance Insurance [employer] MEDICARE [facility] Address: [address] [place] [id number] [facility] MED[facility] Address: [address] [address] [place] [address] Advance Directives For more information, please contact: [phone] * Full Code (Latest Code Status on File) Date Activated Date Inactivated Comments 11/15/2023 8:01 PM 11/17/2023 5:05 PM * Full Code Date Activated Date Inactivated Comments 03/23/2023 10:52 AM 03/23/2023 5:49 PM * Full Code Date Activated Date Inactivated Comments 03/23/2023 10:51 AM 03/23/2023 10:52 AM * Full Code Date Activated Date Inactivated Comments 02/10/2018 8:40 AM 02/10/2018 1:48 PM Care Teams Merchant 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
== END 2024-08-31 12:01 | disposition left against medical advice (07) ==
LOC: EXPBETH 10:45
PROVIDERS: Emergency Provider Nurse Practitioner Family; PCP Family Medicine
DX: R60.0 Localized edema (principal); R06.02 Shortness of breath; F17.210 Nicotine dependence, cigarettes, uncomplicated; J44.9 Chronic obstructive pulmonary disease, unspecified; E07.9 Disorder of thyroid, unspecified; Z85.038 Personal history of other malignant neoplasm of large intestine
CPT/HCPCS: 71046; 99213; G0463